=== PATIENT | female | born 1985 | race American Indian/Alaskan Native ===

== ENCOUNTER 2019-06-13 19:28 | Emergency (ER) | payer OTHER ==
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
[2019-06-13 20:58] LABS: HCG Qualitative,Urine Negative (Negative)
[2019-06-13 21:00] LABS: Bilirubin,Urine NEG (Negative); Blood,Urine MOD (Negative); Color,Urine Straw (Yellow); Mucus,Urine FEW /HPF; Protein,Urine <15 mg/dL mg/dL (Negative); RBC,Urine < 1.0 /HPF (0.0-6.0); Urobilinogen,Urine < 2.0 mg/dL (<2.0)
[2019-06-13 21:02] LABS: WBC,Urine < 1.0 /HPF (0.0-6.0)
[2019-06-13] MEDS ORDERED: IBUPROFEN 800 MG TAB PO ONE (22:02)
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
[2019-06-14 01:26] VITALS: BP 148/86
== END 2019-06-13 23:30 | disposition home or self-care (01) ==
LOC: ED 19:28
DX: S16.1XXA Strain of muscle, fascia and tendon at neck level, initial encounter (principal); S39.012A Strain of muscle, fascia and tendon of lower back, initial encounter; S29.012A Strain of muscle and tendon of back wall of thorax, initial encounter; S09.90XA Unspecified injury of head, initial encounter; F17.210 Nicotine dependence, cigarettes, uncomplicated; Z98.890 Other specified postprocedural states
CPT/HCPCS: 70450; 72040; 72072; 72100; 72125; 81001; 81025

== ENCOUNTER 2020-12-13 00:13 | Inpatient (IN) | payer BC, MEDICAID ==
[2020-12-13] MEDS ORDERED: ASPIRIN 325 MG TAB PO ONE (00:27)
[2020-12-13 01:20] LABS: Basophils % (Auto) 0.2 % (0.0-1.8); Eosinophils % (Auto) 0.4 % (0.0-4.3); Hematocrit 37.4 % (30.3-42.9); Hemoglobin 12.3 gm/dl (10.1-14.3); Lymphocytes # (Auto) 1.6 K/mm3 (1.2-5.4); Lymphocytes % (Auto) 16.9 % (13.4-35.0); Mean Corpuscular HGB Conc 33 % (30-34); Mean Corpuscular Volume 82 fl (79-97); Monocytes # (Auto) 0.5 K/mm3 (0.0-0.8); Platelet Count 360 K/mm3 (140-440); Red Blood Count 4.57 M/mm3 (3.65-5.03)
--- NOTE | 2020-12-13 01:38 | XRay Report ---
CHEST 2 VIEWS INDICATION / CLINICAL INFORMATION: Chest Pain. COMPARISON: None available. FINDINGS: SUPPORT DEVICES: None. HEART / MEDIASTINUM: No significant abnormality. LUNGS / PLEURA: No significant pulmonary or pleural abnormality. No pneumothorax. ADDITIONAL FINDINGS: No significant additional findings. IMPRESSION: 1. No acute findings. Signer Name: Kayode Clark MD Signed: 12/13/2020 1:34 AM Workstation Name: [id number]
[2020-12-13 01:45] LABS: Alanine Aminotransferase 13 units/L (7-56); Albumin 4.2 g/dL (3.9-5); BUN/Creatinine Ratio 9; Blood Urea Nitrogen 8 mg/dL (7-17); Calcium 8.7 mg/dL (8.4-10.2); Hemolysis Index 2
[2020-12-13] MEDS ORDERED: POTASSIUM CHLORIDE ER 20 MEQ TAB PO ONE (02:22)
[2020-12-13] MEDS ORDERED: ASPIRIN 81 MG TAB CHEW PO ONE (02:50)
[2020-12-13 03:37] LABS: Chol/HDL Ratio 3.21 %
[2020-12-13] MEDS ORDERED: HEPARIN 10,000 UNITS/10 ML VIAL IV PRN (03:59)
[2020-12-13] MEDS ORDERED: HEPARIN 10,000 UNITS/10 ML VIAL IV ONE (03:59)
[2020-12-13] MEDS ORDERED: HEPARIN/ 0.45% NACL DRIP 25,000 UNIT/500 ML BAG IV SCH (04:00)
[2020-12-13] MEDS ORDERED: MORPHINE 2 MG/1 ML INJ IV ONE (04:02)
[2020-12-13] MEDS ORDERED: NITROGLYCERIN DRIP 50 MG/250 ML BOTTLE IV ONE (04:03)
--- NOTE | 2020-12-13 04:33 | Emergency Department Report ---
ED Chest Pain HPI - General Chief Complaint: Chest Pain Stated Complaint: CHEST PAINS Source: patient, EMS Mode of arrival: Wheelchair Limitations: No Limitations - History of Present Illness Initial Comments: 35-year-old female with past medical history of recent delivery of twins by C- section on October 15 presents to the emergency department with complaint of chest pain. Patient states that her pain started on last night she states that was located in the middle of her chest and moved to her neck and she felt some numbness in her arms. Her chest pain she rated at around 3 or 4 out of 10. She states she has not had symptoms of chest pain prior to this. She denies feeling any shortness of breath. She does have a history of hypertension and states she is currently been on nifedipine and vitamins. She does have family history of cardiac disease with a mother who had a heart attack as well as a cousin who had a heart attack in their 30s. Of note patient does states she is currently receiving treatment for likely endometritis with ampicillin and metronidazole. Severity scale (0 -10): 0 - Related Data Previous Rx's Medication Instructions Recorded Last Taken Type Cyclobenzaprine [Flexeril] 10 mg PO TID PRN #14 tablet 06/13/19 Unknown Rx HYDROcodone/APAP 5-325 [[place] 1 each PO Q6HR PRN #10 tablet 06/13/19 Unknown Rx 5/325] Ibuprofen [Motrin 800 MG tab] 800 mg PO Q8HR PRN #20 tablet 06/13/19 Unknown Rx Allergies Allergy/AdvReac Type Severity Reaction Status Date / Time No Known Allergies Allergy Verified 12/13/20 02:22 Heart Score - HEART Score History: Moderately suspicious EKG: Non-specific Age: < 45 Risk factors: 1-2 risk factors Troponin: 1-3x normal limit HEART Score: 4 - EKG Read Time Time EKG Completed: 00:32 EKG Read Time: 00:40 ED Review of Systems ROS: Stated complaint: CHEST PAINS Other details as noted in HPI Constitutional: denies: chills, fever Eyes: denies: eye discharge ENT: denies: throat pain Respiratory: denies: cough Cardiovascular: chest pain. denies: dyspnea on exertion, syncope Endocrine: no symptoms reported Gastrointestinal: denies: abdominal pain, nausea, vomiting Genitourinary: denies: urgency, dysuria Musculoskeletal: denies: back pain Skin: denies: rash Neurological: denies: headache, weakness Psychiatric: denies: anxiety, depression Hematological/Lymphatic: denies: easy bleeding ED Past Medical Hx - Past Medical History Previous Medical History?: Yes Hx Hypertension: Yes - Surgical History Past Surgical History?: Yes Additional Surgical History: /bladder - Social History Smoking Status: Current Every Day Smoker Substance Use Type: None - Medications Home Medications: Home Medications Medication Instructions Recorded Confirmed Last Taken Type Cyclobenzaprine [Flexeril] 10 mg PO TID PRN #14 tablet 06/13/19 Unknown Rx HYDROcodone/APAP 5-325 [[place] 1 each PO Q6HR PRN #10 tablet 06/13/19 Unknown Rx 5/325] Ibuprofen [Motrin 800 MG tab] 800 mg PO Q8HR PRN #20 tablet 06/13/19 Unknown Rx ED Physical Exam - General Limitations: No Limitations General appearance: alert, in no apparent distress - Head Head exam: Present: atraumatic, normocephalic - Eye Eye exam: Present: normal appearance - ENT ENT exam: Present: mucous membranes moist - Neck Neck exam: Present: normal inspection - Respiratory Respiratory exam: Present: normal lung sounds bilaterally. Absent: respiratory distress - Cardiovascular Cardiovascular Exam: Present: regular rate, normal rhythm. Absent: systolic murmur, diastolic murmur, rubs, gallop - GI/Abdominal GI/Abdominal exam: Present: soft, normal bowel sounds - Rectal Rectal exam: Present: deferred - Extremities Exam Extremities exam: Present: normal inspection - Back Exam Back exam: Present: normal inspection - Neurological Exam Neurological exam: Present: alert, oriented X3 - Psychiatric Psychiatric exam: Present: normal affect, normal mood - Skin Skin exam: Present: warm, dry, intact, normal color. Absent: rash ED Course Vital Signs 12/12/20 12/12/20 12/12/20 23:23 23:30 23:46 Temperature Pulse Rate 75 71 70 Respiratory 19 17 20 Rate Blood Pressure 115/58 115/58 115/58 O2 Sat by Pulse 98 97 98 Oximetry 12/13/20 12/13/20 12/13/20 00:24 02:34 02:45 Temperature 98.3 F Pulse Rate 77 81 76 Respiratory 20 13 11 L Rate Blood Pressure 147/91 115/58 146/96 O2 Sat by Pulse 98 99 100 Oximetry 0712/13/20 12/13/20 03:01 03:15 03:31 Temperature Pulse Rate 74 85 68 Respiratory 20 23 19 Rate Blood Pressure 115/58 125/53 125/53 O2 Sat by Pulse 100 100 99 Oximetry 12/13/20 12/13/20 12/13/20 03:45 04:01 04:15 Temperature Pulse Rate 72 73 82 Respiratory 17 17 17 Rate Blood Pressure 125/53 121/65 121/65 O2 Sat by Pulse 97 96 99 Oximetry 12/13/20 12/13/20 12/13/20 04:49 05:01 05:15 Temperature Pulse Rate 78 76 85 Respiratory 16 19 19 Rate Blood Pressure 138/77 147/94 152/102 O2 Sat by Pulse 97 100 99 Oximetry 12/13/20 12/13/20 12/13/20 05:31 05:45 06:01 Temperature Pulse Rate 76 75 71 Respiratory 14 18 12 Rate Blood Pressure 145/95 137/93 128/82 O2 Sat by Pulse 100 98 99 Oximetry 12/13/20 06:15 Temperature Pulse Rate 78 Respiratory 13 Rate Blood Pressure 134/82 O2 Sat by Pulse 99 Oximetry - Reevaluation(s) Reevaluation #1: 12/13/20 04:15 Patient is currently chest pain-free. Her blood pressure is 121/80. I discussed patient's results of her second troponin and that she will be started on a heparin drip. ED Medical Decision Making - Lab Data Result diagrams: 12/13/20 05:31 12/13/20 00:55 - EKG Data -: EKG Interpreted by Me - EKG Data 12/13/20 02:41 Initial EKG completed at 12:32 AM shows accelerated junctional rhythm at a rate of 83 with right bundle branch block and lateral infarct,age-indeterminate. 12/13/20 02:59 Second EKG done at 2:56 AM shows sinus rhythm at a rate of 77 with possible anterior septal infarct, age indeterminate. - Radiology Data Radiology results: report reviewed, image reviewed - Medical Decision Making 35-year-old female presents emergency department with complaint of chest pain. Patient was evaluated initially in triage and her initial EKG showed accelerated junctional rhythm with right bundle branch block. Patient also had troponin collected in triage that was mildly elevated. When patient arrived to the back and I saw the patient she had EKG that showed normal sinus rhythm with possible anterior lateral infarct. I repeated patient's troponin which was then noted to be elevated at 0.384. I am concerned for NSTEMI at this time. Patient is currently chest pain-free but has been started on a heparin drip. I have also discussed with the hospitalist who is accepted patient for admission. Of note patient states that she also recently delivered twins on September 25 and is currently undergoing treatment with ampicillin and metronidazole for endometritis. Patient does not appear septic, she has no tachycardia no fever and does not complain of severe abdominal pain. Also considered is pulmonary embolism however patient denies any shortness of breath and her oxygen levels are normal and once again has no tachycardia. Patient to be monitored closely on telemetry with heparin drip and admitted to the hospitalist for further management. Critical care attestation.: If time is entered above; I have spent that time in minutes in the direct care of this critically ill patient, excluding procedure time. ED Disposition Clinical Impression: NSTEMI (non-ST elevated myocardial infarction) Disposition: OP ADMIT IP TO THIS HOSP Is pt being admited?: Yes Does the pt Need Aspirin: Yes Condition: Stable Time of Disposition: 04:20
[2020-12-13] MEDS ORDERED: HYDROmorphone 1 MG/1 ML INJ IV PRN (04:36)
[2020-12-13] MEDS ORDERED: ACETAMINOPHEN 325 MG TAB PO PRN (04:36)
[2020-12-13] MEDS ORDERED: oxyCODONE /ACETAMINOPHEN 5-325MG TAB PO PRN (04:36)
[2020-12-13] MEDS ORDERED: ONDANSETRON 4 MG/2 ML INJ IV PRN (04:36)
[2020-12-13] MEDS ORDERED: SODIUM CHLORIDE 0.9% 1000 ML 1,000 ML ONE ×2 (05:01→11:55)
[2020-12-13] MEDS: SODIUM CHLORIDE 0.9% 1000 ML 1,000 ML IV SCH ×2 (05:02→14:00)
--- NOTE | 2020-12-13 05:18 | History and Physical Report ---
History of Present Illness Date of examination: 12/13/20 Date of admission: 12/13/2020 Chief complaint: chest pain History of present illness: 35-year-old -Iraqi female with history of hypertension who presents [facility] ED with complaints of chest pain. Patient states she was driving home around 9 PM last night when she started experiencing substernal chest pain with radiation to her jaw and arms. Upon arriving home she called her sister who was a nurse and described her symptoms. Her sister told her it sounded like heartburn, patient took some Rolaids with no relief. The pain continued and actually worsened, she became nauseous and diaphoretic, and eventually had an episode of emesis. She describes her pain as sharp and rates it 10/10. Patient called EMS for further evaluation and treatment. Of note patient has a strong family history of cardiac disease. Her mother had a heart attack, as well as her cousin (who is in her mid 30s) from an acute [place]. Endorses: Diaphoresis, nausea, emesis, chest pain with radiation to jaw and bilateral arms Denies: Shortness of breath, fever, chills, palpitations, cough, hemoptysis, dysuria, history of GERD, recent sick contacts Past History Past Medical History: hypertension, other (Preeclampsia) Past Surgical History: (X1 (twins)), Other (Bladder surgery) Social history: single, smoking, full code. denies: alcohol abuse, prescription drug abuse, IV drug use Family history: CAD, hypertension Medications and Allergies Allergies Allergy/AdvReac Type Severity Reaction Status Date / Time No Known Allergies Allergy Verified 12/13/20 02:22 Home Medications Medication Instructions Recorded Confirmed Last Taken Type Cyclobenzaprine [Flexeril] 10 mg PO TID PRN #14 tablet 06/13/19 Unknown Rx HYDROcodone/APAP 5-325 [[place] 1 each PO Q6HR PRN #10 tablet 06/13/19 Unknown Rx 5/325] Ibuprofen [Motrin 800 MG tab] 800 mg PO Q8HR PRN #20 tablet 06/13/19 Unknown Rx Active Meds: Active Medications Acetaminophen (Acetaminophen 325 Mg Tab) 650 mg PO Q4H PRN PRN Reason: Pain MILD(1-3)/Fever >100.5/ISIDRO Heparin Sodium (Porcine) (Heparin 10,000 Units/10 Ml Vial) 4,000 unit 40 unit/kg (4000 unit) IV Q6H PRN PRN Reason: Anti-Xa Assay < 0.1 units/ml Hydromorphone HCl (Hydromorphone 1 Mg/1 Ml Inj) 0.5 mg IV Q3H PRN PRN Reason: Pain , Severe (7-10) Heparin Sodium/Sodium Chloride (Heparin/ 0.45% Nacl-25,000 Unit/500 Ml) 25,000 unit in 500 mls @ 20 mls/hr IV TITRATE [place]RI[place]; Protocol Nitroglycerin/Dextrose (Tridil Drip 50mg/250ml) 50 mg in 250 mls @ 3 mls/hr IV TITR ONE; Protocol Stop: 12/16/20 15:22 Last Titration: 12/13/20 05:09 Dose: 15 mcg/min, 4.5 mls/hr Documented by: Sodium Chloride (Nacl 0.9% 1000 Ml) 1,000 mls @ 75 mls/hr IV DIRECT [place]RI[place] Last Admin: 12/13/20 05:02 Dose: 75 mls/hr Documented by: Nicotine (Nicotine 14 Mg/24 Hr Patch) 14 mg TD QDAY [place] Ondansetron HCl (Ondansetron 4 Mg/2 Ml Inj) 4 mg IV Q8H PRN PRN Reason: Nausea And Vomiting Oxycodone/Acetaminophen (Oxycodone /Acetaminophen 5-325mg Tab) 1 tab PO Q6H PRN PRN Reason: Pain, Moderate (4-6) Sodium Chloride (Sodium Chloride 0.9% 10 Ml Flush Syringe) 10 ml IV BID [place] Sodium Chloride (Sodium Chloride 0.9% 10 Ml Flush Syringe) 10 ml IV PRN PRN PRN Reason: LINE FLUSH Review of Systems All systems: negative (As noted in HPI) Exam - Physical Exam Narrative exam: Physical exam General appearance: Present: No acute distress, alert and oriented 3, adult female - EENT Eyes: Present: PERRL, EOM intact ENT: hearing intact, normal dentition - Neck Neck: Present: supple, normal ROM - Respiratory Respiratory effort: Non-labored Respiratory: Clear throughout - Cardiovascular Heart rate: 77 (bpm) Rhythm: possible anterior septal infarct, age indeterminate Heart Sounds: Present: S1 & S2. Absent: rub, click - Extremities Extremities: no ischemia, pulses intact, - Peripheral Assessment Peripheral Pulses: within normal limits - Abdominal General gastrointestinal: Obese, soft, non-tender, normal bowel sounds - Integumentary Integumentary: Present: warm, dry - Musculoskeletal Musculoskeletal: Able to move all extremities -Neurological Neurological: CN II-XII intact - Psychiatric Psychiatric: cooperative - Constitutional Vitals: Temp Pulse Resp BP Pulse Ox 98.3 F 76 19 147/94 100 12/13/20 00:24 12/13/20 05:01 12/13/20 05:01 12/13/20 05:01 12/13/20 05:01 HEART Score - HEART Score EKG: Non-specific Age: < 45 Risk factors: 1-2 risk factors Troponin: Troponin T 0.384 ng/mL (0.00-0.029) H* D 12/13/20 02:24 Troponin: 1-3x normal limit Results - Labs CBC & Chem 7: 12/13/20 00:55 12/13/20 00:55 Labs: Laboratory Last Values WBC 9.7 K/mm3 (4.5-11.0) 12/13/20 00:55 RBC 4.57 M/mm3 (3.65-5.03) 12/13/20 00:55 Hgb 12.3 gm/dl (10.1-14.3) 12/13/20 00:55 Hct 37.4 % (30.3-42.9) 12/13/20 00:55 MCV 82 fl (79-97) 12/13/20 00:55 MCH 27 pg (28-32) L 12/13/20 00:55 MCHC 33 % (30-34) 12/13/20 00:55 RDW 15.0 % (13.2-15.2) 12/13/20 00:55 Plt Count 360 K/mm3 (140-440) 12/13/20 00:55 Lymph % (Auto) 16.9 % (13.4-35.0) 12/13/20 00:55 [place] % (Auto) 5.0 % (0.0-7.3) 12/13/20 00:55 Eos % (Auto) 0.4 % (0.0-4.3) 12/13/20 00:55 Baso % (Auto) 0.2 % (0.0-1.8) 12/13/20 00:55 Lymph # (Auto) 1.6 K/mm3 (1.2-5.4) 12/13/20 00:55 [place] # (Auto) 0.5 K/mm3 (0.0-0.8) 12/13/20 00:55 Eos # (Auto) 0.0 K/mm3 (0.0-0.4) 12/13/20 00:55 Baso # (Auto) 0.0 K/mm3 (0.0-0.1) 12/13/20 00:55 Seg Neutrophils % 77.5 % (40.0-70.0) H 12/13/20 00:55 Seg Neutrophils # 7.6 K/mm3 (1.8-7.7) 12/13/20 00:55 Sodium 139 mmol/L (137-145) 12/13/20 00:55 Potassium 3.3 mmol/L (3.6-5.0) L 12/13/20 00:55 Chloride 101.5 mmol/L (98-107) 12/13/20 00:55 Carbon Dioxide 24 mmol/L (22-30) 12/13/20 00:55 Anion Gap 17 mmol/L 12/13/20 00:55 BUN 8 mg/dL (7-17) 12/13/20 00:55 Creatinine 0.9 mg/dL (0.6-1.2) 12/13/20 00:55 Estimated GFR > 60 ml/min 12/13/20 00:55 BUN/Creatinine Ratio 9 % 12/13/20 00:55 Glucose 106 mg/dL (65-100) H 12/13/20 00:55 Calcium 8.7 mg/dL (8.4-10.2) 12/13/20 00:55 Magnesium 2.10 mg/dL (1.7-2.3) 12/13/20 02:24 Total Bilirubin 0.20 mg/dL (0.1-1.2) 12/13/20 00:55 AST 20 units/L (5-40) 12/13/20 00:55 ALT 13 units/L (7-56) 12/13/20 00:55 Alkaline Phosphatase 81 units/L (35-129) 12/13/20 00:55 Troponin T 0.384 ng/mL (0.00-0.029) H* D 12/13/20 02:24 Total Protein 7.5 g/dL (6.3-8.2) 12/13/20 00:55 Albumin 4.2 g/dL (3.9-5) 12/13/20 00:55 Albumin/Globulin Ratio 1.3 % 12/13/20 00:55 Triglycerides 100 mg/dL (2-149) 12/13/20 00:55 Cholesterol 151 mg/dL (50-199) 12/13/20 00:55 LDL Cholesterol Direct 97 mg/dL (50-130) 12/13/20 00:55 HDL Cholesterol 47 mg/dL (40-59) 12/13/20 00:55 Cholesterol/HDL Ratio 3.21 % 12/13/20 00:55 - Imaging and Cardiology Chest x-ray: report reviewed (No acute abnormalities), image reviewed Assessment and Plan Assessment and plan: NSTEMI -Initiate chest pain protocol -On continuous telemetry monitoring -EKG shows shows sinus rhythm at a rate of 77 with possible anterior septal infarct, age indeterminate -Troponin now 0.384 (trending up from 0.076), will continue to trend -Continue supportive care -On Heparin and nitro gtt -Cardiology consulted HTN -Monitor BP -Resume home hypertensive meds, when appropriate -Currently on nitro drip Hypokalemia -Moderate -See for placement in ED -Continue to monitor and replace as needed Tobacco abuse -History of smoking,, quit during (01/2020-09/2020), a few weeks ago -Endorses smoking 2 to 3 cigarettes/day -Counseled for cessation -Nicotine patch when necessary Advance Directives: Yes VTE prophylaxis?: Mechanical Plan of care discussed with patient/family: Yes
[2020-12-13] MEDS ORDERED: MORPHINE 2 MG/1 ML INJ IV PRN (05:39)
[2020-12-13 05:56] LABS: Hematocrit 35.8 % (30.3-42.9); Hemoglobin 11.6 gm/dl (10.1-14.3)
[2020-12-13 06:12] LABS: INR 1.04 (0.87-1.13)
[2020-12-13 06:20] LABS: Partial Thromboplastin Time 157.1 Sec. (24.2-36.6)
[2020-12-13] MEDS ORDERED: SODIUM CHLORIDE 0.9% 500 ML 500 ML IV SCH (09:00)
[2020-12-13] MEDS ORDERED: NICOTINE 14 MG/24 HR PATCH TD SCH (10:00)
--- NOTE | 2020-12-13 10:02 | Consultation ---
History of Present Illness Consult date: 12/13/20 Requesting physician: ABIMBOLA KHAN Consult reason: elevated troponin History of present illness: 35-year-old female with obesity delivered twins in September 2020 has a family history of premature coronary arterial disease. Last night after dinner had midsternal chest pain nonradiating called her sister who is a nurse took heartburn medication without relief came to the emergency room initial EKG shows wide complex junctional rhythm then patient returned to sinus rhythm with nonspecific ST-T's. Patient found to have elevated troponin admitted for non-ST elevation CT. Patient was placed on heparin and nitroglycerin. Bedside echo shows mild to moderate LV dysfunction with apical hypokinesis. 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 Patient denies any fever chills has some mild nausea Past History Past Medical History: hypertension, other (Preeclampsia) Past Surgical History: (X1 (twins)), Other (Bladder surgery) Social history: single, smoking, full code. denies: alcohol abuse, prescription drug abuse, IV drug use Family history: CAD, hypertension Medications and Allergies Allergies Allergy/AdvReac Type Severity Reaction Status Date / Time No Known Allergies Allergy Verified 12/13/20 02:22 Home Medications Medication Instructions Recorded Confirmed Last Taken Type Cyclobenzaprine [Flexeril] 10 mg PO TID PRN #14 tablet 06/13/19 Unknown Rx HYDROcodone/APAP 5-325 [[place] 1 each PO Q6HR PRN #10 tablet 06/13/19 Unknown Rx 5/325] Ibuprofen [Motrin 800 MG tab] 800 mg PO Q8HR PRN #20 tablet 06/13/19 Unknown Rx Active Meds: Active Medications Acetaminophen (Acetaminophen 325 Mg Tab) 650 mg PO Q4H PRN PRN Reason: Pain MILD(1-3)/Fever >100.5/ISIDRO Heparin Sodium (Porcine) (Heparin 10,000 Units/10 Ml Vial) 4,000 unit 40 unit/kg (4000 unit) IV Q6H PRN PRN Reason: Anti-Xa Assay < 0.1 units/ml Hydromorphone HCl (Hydromorphone 1 Mg/1 Ml Inj) 0.5 mg IV Q3H PRN PRN Reason: Pain , Severe (7-10) Heparin Sodium/Sodium Chloride (Heparin/ 0.45% Nacl-25,000 Unit/500 Ml) 25,000 unit in 500 mls @ 20 mls/hr IV TITRATE ANDRIA; Protocol Last Admin: 12/13/20 05:42 Dose: 1,000 units/hr, 20 mls/hr Documented by: Nitroglycerin/Dextrose (Tridil Drip 50mg/250ml) 50 mg in 250 mls @ 3 mls/hr IV TITR ONE; Protocol Stop: 12/16/20 15:22 Last Titration: 12/13/20 08:15 Dose: 35 mcg/min, 10.5 mls/hr Documented by: Sodium Chloride (Nacl 0.9% 1000 Ml) 1,000 mls @ 75 mls/hr IV DIRECT ANDRIA Last Admin: 12/13/20 05:02 Dose: 75 mls/hr Documented by: Sodium Chloride (Nacl 0.9% 500 Ml) 500 mls @ 50 mls/hr IV DIRECT [place] Stop: 12/13/20 18:59 Morphine Sulfate (Morphine 2 Mg/1 Ml Inj) 2 mg IV Q5MIN PRN PRN Reason: Chest Pain unrelieved by NTG Nicotine (Nicotine 14 Mg/24 Hr Patch) 14 mg TD QDAY [place] Ondansetron HCl (Ondansetron 4 Mg/2 Ml Inj) 4 mg IV Q8H PRN PRN Reason: Nausea And Vomiting Oxycodone/Acetaminophen (Oxycodone /Acetaminophen 5-325mg Tab) 1 tab PO Q6H PRN PRN Reason: Pain, Moderate (4-6) Last Admin: 12/13/20 08:28 Dose: 1 tab Documented by: Sodium Chloride (Sodium Chloride 0.9% 10 Ml Flush Syringe) 10 ml IV BID [place]RI[place] Sodium Chloride (Sodium Chloride 0.9% 10 Ml Flush Syringe) 10 ml IV PRN PRN PRN Reason: LINE FLUSH Review of Systems All systems: negative (as per hpi) Physical Examination Vital Signs Pulse Resp BP Pulse Ox 75 19 115/58 98 12/12/20 23:23 12/12/20 23:23 12/12/20 23:23 12/12/20 23:23 General appearance: no acute distress, well-nourished HEENT: Positive: PERRL, Mucus Membranes Moist Neck: Positive: neck supple, trachea midline Cardiac: Positive: Reg Rate and Rhythm, S1/S2. Negative: Audible Murmur Lungs: Positive: clear to auscultation, Normal Breath Sounds Neuro: Positive: Grossly Intact Abdomen: Positive: Soft, Active Bowel Sounds. Negative: Tender, Distended Female genitourinary: deferred Skin: Positive: Clear Incision: Cardiac Cath Site Musculoskeletal: No Pain, Normal Range of Motion Extremities: Present: normal. Absent: edema Results 12/13/20 05:31 12/13/20 00:55 Cardiac Enzymes 12/13/20 Range/Units 00:55 AST 20 (5-40) units/L Coagulation 12/13/20 Range/Units 05:31 PT 14.1 (12.2-14.9) Sec. INR 1.04 (0.87-1.13) APTT 157.1 H* (24.2-36.6) Sec. Lipids 12/13/20 Range/Units 00:55 Triglycerides 100 (2-149) mg/dL Cholesterol 151 (50-199) mg/dL HDL Cholesterol 47 (40-59) mg/dL Cholesterol/HDL Ratio 3.21 % CBC 12/13/20 12/13/20 Range/Units 00:55 05:31 WBC 9.7 (4.5-11.0) K/mm3 RBC 4.57 (3.65-5.03) M/mm3 Hgb 12.3 11.6 (10.1-14.3) gm/dl Hct 37.4 35.8 (30.3-42.9) % Plt Count 360 366 (140-440) K/mm3 Lymph # (Auto) 1.6 (1.2-5.4) K/mm3 [place] # (Auto) 0.5 (0.0-0.8) K/mm3 Eos # (Auto) 0.0 (0.0-0.4) K/mm3 Baso # (Auto) 0.0 (0.0-0.1) K/mm3 Comprehensive Metabolic Panel 12/13/20 Range/Units 00:55 Sodium 139 (137-145) mmol/L Potassium 3.3 L (3.6-5.0) mmol/L Chloride 101.5 (98-107) mmol/L Carbon Dioxide 24 (22-30) mmol/L BUN 8 (7-17) mg/dL Creatinine 0.9 (0.6-1.2) mg/dL Glucose 106 H (65-100) mg/dL Calcium 8.7 (8.4-10.2) mg/dL AST 20 (5-40) units/L ALT 13 (7-56) units/L Alkaline Phosphatase 81 (35-129) units/L Total Protein 7.5 (6.3-8.2) g/dL Albumin 4.2 (3.9-5) g/dL - Imaging and Cardiology Echo: report reviewed (Mild to moderate LV dysfunction anterior anterior apical hypokinesis EF 40%) EKG interpretations - Telemetry EKG Rhythm: Sinus Rhythm (Sinus rhythm nonspecific ST-T) Assessment and Plan 35-year-old female with a non-ST elevation CT on heparin nitro chest pain is almost resolved given LV dysfunction abnormal troponin patient is being taken to the cardiac [facility] for cardiac catheterization for angiography explained risk and benefits Left heart catheterization revealed left main patent LAD mid 90% had PCI of the LAD with a drug-eluting resolute 3.0 x 30 mm stent. 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 Patient is on heparin and Aggrastat nitro discussed this in detail with the patient patient's sister Mrs. Torres. - Patient Problems (1) Acute diastolic (congestive) heart failure Current Visit: Yes Status: Acute (2) Morbid obesity Current Visit: Yes Status: Chronic (3) Hyperlipidemia Current Visit: Yes Status: Acute Qualifiers: Hyperlipidemia type: mixed hyperlipidemia Qualified Code(s): E78.2 - Mixed hyperlipidemia (4) NSTEMI (non-ST elevated myocardial infarction) Current Visit: Yes Status: Acute
[2020-12-13] MEDS: MIDAZOLAM 2 MG/2 ML INJ ONE ×3 (10:52→11:42)
[2020-12-13] MEDS: LIDOCAINE (2%) 20 MG/1 ML VIAL 20 ML MDV INFILTRATI ONE ×2 (10:52→11:01)
[2020-12-13] MEDS: fentaNYL 100 MCG/2 ML INJ ONE ×3 (10:52→11:42)
[2020-12-13] MEDS: VERAPAMIL 5 MG/2 ML INJ ONE ×2 (10:53→11:01)
[2020-12-13] MEDS: HEPARIN 10,000 UNITS/10 ML VIAL ONE ×4 (10:53→12:05)
[2020-12-13] MEDS: HEPARIN/NS 5000 UNIT/500ML 1,000 ML IR ONE ×2 (10:54→11:00)
[2020-12-13] MEDS: NITROGLYCERIN SYRINGE 3 ML ONE ×2 (10:54→11:01)
--- NOTE | 2020-12-13 10:57 | Event Note ---
Date: 12/13/20 Patient seen and examined, off to the cardiac cath, will follow once patient returns
[2020-12-13] MEDS ORDERED: TIROFIBAN/NS 12,500 MCG/250 ML BAG IV ONE (11:12)
[2020-12-13] MEDS ORDERED: HEPARIN/NS 5000 UNIT/500ML 500 ML IR ONE (11:30)
[2020-12-13] MEDS ORDERED: ATROPINE 0.1% (1 MG/10 ML) CARDIAC SYRINGE ONE (11:33)
[2020-12-13] MEDS ORDERED: NITROGLYCERIN SYRINGE 6 ML ONE (11:39)
[2020-12-13] MEDS ORDERED: fentaNYL 100 MCG/2 ML INJ ONE (11:56)
[2020-12-13] MEDS ORDERED: TICAGRELOR 90 MG TAB ONE (12:14)
--- NOTE | 2020-12-13 12:35 | Discharge Summary ---
Providers - Providers Date of Admission: 12/13/20 04:36 Attending physician: ABIMBOLA KHAN MD 12/13/20 Consult to Cardiac Rehabilitation [CONS] Routine Reason For Exam: Phase 1 12/13/20 04:36 Consult to Cardiology [CONS] Routine Consulting Provider: ALESSANDRO TAYLOR Reason For Exam: NSTEMI on heparin gtt 12/13/20 06:13 Consult to Physician [CONS] Routine Comment: Consulting Provider: ARCHIE COLON Physician Instructions: Reason For Exam: nstemi, icu admission Primary care physician: ORTHO ASSISTANT Hospitalization Reason for admission: NSTEMI Condition: Stable Hospital course: 35-year-old -Mosotho female with history of hypertension who presents [facility] ED with complaints of chest pain. Patient states she was driving home around 9 PM last night when she started experiencing substernal chest pain with radiation to her jaw and arms. Upon arriving home she called her sister who was a nurse and described her symptoms. Her sister told her it sounded like heartburn, patient took some Rolaids with no relief. The pain continued and actually worsened, she became nauseous and diaphoretic, and eventually had an episode of emesis. She describes her pain as sharp and rates it 10/10. Patient called EMS for further evaluation and treatment. Of note patient has a strong family history of cardiac disease. Her mother had a heart attack, as well as her cousin (who is in her mid 30s) from an acute [place]. Endorses: Diaphoresis, nausea, emesis, chest pain with radiation to jaw and bilateral arms Denies: Shortness of breath, fever, chills, palpitations, cough, hemoptysis, dysuria, history of GERD, recent sick contacts PATIENT WENT FOR [employer] AND WAS TRANSFERED TO [place] BY CARDIOLOGY NSTEMI -Initiate chest pain protocol -On continuous telemetry monitoring -EKG shows shows sinus rhythm at a rate of 77 with possible anterior septal infarct, age indeterminate -Troponin now 0.384 (trending up from 0.076), will continue to trend -Continue supportive care -On Heparin and nitro gtt -Cardiology consulted HTN -Monitor BP -Resume home hypertensive meds, when appropriate -Currently on nitro drip Hypokalemia -Moderate -See for placement in ED -Continue to monitor and replace as needed Tobacco abuse -History of smoking,, quit during (01/2020-09/2020), a few weeks ago -Endorses smoking 2 to 3 cigarettes/day -Counseled for cessation -Nicotine patch when necessary Disposition: 02 [facility] Final Discharge Diagnosis (Prints w/discharge instructions): NSTEMI Time spent for discharge: 35 MINS Core Measure Documentation - Palliative Care Palliative Care/ Comfort Measures: Not Applicable - Core Measures Any of the following diagnoses?: acute [place] - Acute [place] Discharge Requirements Aspirin at discharge: Yes ALISON/ARB for LVSD if EF <40%: Not Applicable Beta navid at discharge: Yes Statin for LDL = or >100 mg/dl on DC: Yes Exam - Physical Exam Narrative exam: General appearance: Present: No acute distress, alert and oriented 3, adult female - EENT Eyes: Present: PERRL, EOM intact ENT: hearing intact, normal dentition - Neck Neck: Present: supple, normal ROM - Respiratory Respiratory effort: Non-labored Respiratory: Clear throughout - Cardiovascular Heart rate: 77 (bpm) Heart Sounds: Present: S1 & S2. Absent: rub, click - Extremities Extremities: no ischemia, pulses intact, - Peripheral Assessment Peripheral Pulses: within normal limits - Abdominal General gastrointestinal: Obese, soft, non-tender, normal bowel sounds - Integumentary Integumentary: Present: warm, dry - Musculoskeletal Musculoskeletal: Able to move all extremities -Neurological Neurological: CN II-XII intact - Psychiatric Psychiatric: cooperative - Constitutional Vitals: Temp Pulse Resp BP Pulse Ox 97.5 F L 56 L 22 128/78 94 12/13/20 07:13 12/13/20 09:11 12/13/20 09:11 12/13/20 09:23 12/13/20 09:23 Plan Plan of Treatment: Patient with dissection in need of tertiary care Follow up with: PRIMARY CARE, [Primary Care Provider] - 3-5 Days
[2020-12-13] MEDS ORDERED: HYDROcodone/ACETAMINOPHEN 5-325 MG TAB PO PRN (12:40)
[2020-12-13 14:06] VITALS: BP 141/97
--- NOTE | 2020-12-13 14:14 | Consultation ---
History of Present Illness Consult date: 12/13/20 Requesting physician: CALRISA CEDEÑO Reason for consult: other (NSTEMI) History of present illness: Reportedly to transfer from cath-lab to [facility] and will not be needing ICU admission here - please re-consult if needed Past History Past Medical History: hypertension, other (Preeclampsia) Past Surgical History: (X1 (twins)), Other (Bladder surgery) Social history: single, smoking, full code. denies: alcohol abuse, prescription drug abuse, IV drug use Family history: CAD, hypertension Medications and Allergies Allergies Allergy/AdvReac Type Severity Reaction Status Date / Time No Known Allergies Allergy Verified 12/13/20 02:22 Home Medications Medication Instructions Recorded Confirmed Last Taken Type Cyclobenzaprine [Flexeril] 10 mg PO TID PRN #14 tablet 06/13/19 Unknown Rx HYDROcodone/APAP 5-325 [[place] 1 each PO Q6HR PRN #10 tablet 06/13/19 Unknown Rx 5/325] Ibuprofen [Motrin 800 MG tab] 800 mg PO Q8HR PRN #20 tablet 06/13/19 Unknown Rx Active Meds: Active Medications Acetaminophen (Acetaminophen 325 Mg Tab) 650 mg PO Q4H PRN PRN Reason: Pain MILD(1-3)/Fever >100.5/ISIDRO Hydrocodone Bitart/Acetaminophen (Hydrocodone/Acetaminophen 5-325 Mg Tab) 1 each PO Q6H PRN PRN Reason: Pain, Moderate (4-6) Heparin Sodium (Porcine) (Heparin 10,000 Units/10 Ml Vial) 4,000 unit 40 unit/kg (4000 unit) IV Q6H PRN PRN Reason: Anti-Xa Assay < 0.1 units/ml Hydromorphone HCl (Hydromorphone 1 Mg/1 Ml Inj) 0.5 mg IV Q3H PRN PRN Reason: Pain , Severe (7-10) Heparin Sodium/Sodium Chloride (Heparin/ 0.45% Nacl-25,000 Unit/500 Ml) 25,000 unit in 500 mls @ 20 mls/hr IV TITRATE [place]RI[place]; Protocol Last Titration: 12/13/20 09:00 Dose: 0 units/hr, 0 mls/hr Documented by: Nitroglycerin/Dextrose (Tridil Drip 50mg/250ml) 50 mg in 250 mls @ 3 mls/hr IV TITR ONE; Protocol Stop: 12/16/20 15:22 Last Titration: 12/13/20 09:45 Dose: 250 mcg/min, 75 mls/hr Documented by: Sodium Chloride (Nacl 0.9% 1000 Ml) 1,000 mls @ 75 mls/hr IV DIRECT [place] Last Admin: 12/13/20 05:02 Dose: 75 mls/hr Documented by: Sodium Chloride (Nacl 0.9% 500 Ml) 500 mls @ 50 mls/hr IV DIRECT [place] Stop: 12/13/20 18:59 Morphine Sulfate (Morphine 2 Mg/1 Ml Inj) 2 mg IV Q5MIN PRN PRN Reason: Chest Pain unrelieved by NTG Last Admin: 12/13/20 13:41 Dose: 2 mg Documented by: Nicotine (Nicotine 14 Mg/24 Hr Patch) 14 mg TD QDAY [facility] Last Admin: 12/13/20 10:00 Dose: Not Given Documented by: Ondansetron HCl (Ondansetron 4 Mg/2 Ml Inj) 4 mg IV Q8H PRN PRN Reason: Nausea And Vomiting Oxycodone/Acetaminophen (Oxycodone /Acetaminophen 5-325mg Tab) 1 tab PO Q6H PRN PRN Reason: Pain, Moderate (4-6) Last Admin: 12/13/20 08:28 Dose: 1 tab Documented by: Sodium Chloride (Sodium Chloride 0.9% 10 Ml Flush Syringe) 10 ml IV BID [facility] Last Admin: 12/13/20 10:00 Dose: Not Given Documented by: Sodium Chloride (Sodium Chloride 0.9% 10 Ml Flush Syringe) 10 ml IV PRN PRN PRN Reason: LINE FLUSH Ticagrelor (Ticagrelor 90 Mg Tab) 90 mg PO BID [facility] Physical Examination Vital signs: Vital Signs Pulse Resp BP Pulse Ox 75 19 115/58 98 12/12/20 23:23 12/12/20 23:23 12/12/20 23:23 12/12/20 23:23 Results - Laboratory Findings CBC and BMP: 12/13/20 05:31 12/13/20 00:55 PT/INR, D-dimer PT 14.1 Sec. (12.2-14.9) 12/13/20 05:31 INR 1.04 (0.87-1.13) 12/13/20 05:31 D-Dimer 1140.39 ng/mlDDU (0-234) H 12/13/20 05:31 Abnormal lab findings: Abnormal Labs 12/13/20 12/13/20 12/13/20 00:55 00:55 00:55 MCH 27 L Seg Neutrophils % 77.5 H APTT D-Dimer Potassium 3.3 L Glucose 106 H Troponin T 0.076 H 12/13/20 12/13/20 12/13/20 02:24 05:31 05:31 MCH Seg Neutrophils % APTT 157.1 H* D-Dimer 1140.39 H Potassium Glucose Troponin T 0.384 H* D 0.942 H* D
--- NOTE | 2020-12-13 14:30 | Cardiac Catherization Report ---
DATE OF SERVICE: 12/13/2020 LEFT HEART CATHETERIZATION-PERCUTANEOUS CORONARY REPORT AND INTRAVASCULAR ULTRASOUND REPORT CLINICAL INFORMATION: This is a 35-year-old -[place] female with family history of premature coronary artery disease,delievered two months ago, who is a smoker, obesity, presents with chest pain with non-ST elevation myocardial infarction. PROCEDURE: The patient was taken to cardiac catheterization, explained risks and benefits. The patient was done with moderate sedation started at 11:00 a.m., finished at 12:18 p.m., 78 minutes of moderate sedation. DESCRIPTION OF PROCEDURE: Procedure was done via the right radial artery, sterile technique, local anesthesia. A 6-Namibian radial sheath inserted. Left system engaged with a Matti catheter. The left main is large and patent, bifurcates into medium to large caliber LAD, proximal is patent, mid diffuse 90% lesion. Diagonal 1, diagonal 2, small caliber vessels patent, distal LAD patent, circumflex and AV groove is a medium caliber vessel. The ramus is a medium caliber vessel that is patent with some ostial 30% lesion. RCA is engaged, JR4 is a large dominant vessel that is patent. LV gram done in MICRONESIAN and BERNARDO shows borderline LV function, EF 45%. Attempted PCI of the LAD, difficulty in wiring into the LAD going in to the circumflex. Able to get a Runthrough in the LAD then ballooned with a 2.5 x 20 balloon x2 inflations . Then, IVUS showed distal reference 3.0 mm and left main was patent mild dissection not flow limited. Stented the LAD with a 3.0 x 30 Resolute stent at 12 atmospheres, but the patient was having pain and there was a dissection and thrombus in her circ and high ramus, wired the ramus. The patient was on heparin, also Aggrastat was given to reduce the thrombus burden, but the patient still has a dissection in the circumflex with DEVONTE 2-3 flow, unable to wire despite multiple attempts with different wires and blocking and balloons. A 6-Namibian guiding catheter taken over guidewires. The patient is on IV nitro, heparin and Aggrastat. Brilinta was given to the patient in view of on and off chest pain. She is going to be transferred to [place] for attempted PCI for dissection of the ostial circumflex and bifurcation of OM1.and lt main All catheters taken over guidewires, 6-Namibian radial sheath was discontinued. Radial band applied. SUMMARY: 1. Successful PCI of the mid LAD with drug-eluting Resolute 3.0 x 30mm. 2. dissection of the [place] circumflex and a high OM1 secondary to plaque burden unable to wire secondary to moderate severe tortuosity of the vessel to get in to open up the circumflex. 3. possible spontaneous artery dissection from recent causes multiple vessel dissection RECOMMENDATIONS: The patient will be transferred to [place] for attempted PCI, lt main and lcx. The patient is on heparin, Aggrastat and nitro. Discussed this with the patient and the patient's sister who is a nurse, Ms. Torres. Prognosis is guarded. TID: [id number] RECEIPT: [id number] NELDA/ASIA/TIERA GARCIA
[2020-12-13] MEDS ORDERED: TICAGRELOR 90 MG TAB PO SCH (22:00)
--- NOTE | 2020-12-14 12:18 | Electrocardiograph Report ---
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
--- NOTE | 2020-12-14 12:19 | Electrocardiograph Report ---
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
--- NOTE | 2020-12-14 12:26 | Electrocardiograph Report ---
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
== END 2020-12-13 13:45 | disposition short-term general hospital (02) | DRG 246 ==
LOC: ED 00:13 → IMCU 04:36 → CC1 06:17
PROVIDERS: ADMIT Internal Medicine Geriatric Medicine; ATTEND Internal Medicine
PROC: 027034Z Dilation of Coronary Artery, One Artery with Drug-eluting Intraluminal Device, Percutaneous Approach (ICD-10-PCS; principal; 2020-12-13)
PROC: 4A023N7 Measurement of Cardiac Sampling and Pressure, Left Heart, Percutaneous Approach (ICD-10-PCS; 2020-12-13)
PROC: B2111ZZ Fluoroscopy of Multiple Coronary Arteries using Low Osmolar Contrast (ICD-10-PCS; 2020-12-13)
PROC: B2151ZZ Fluoroscopy of Left Heart using Low Osmolar Contrast (ICD-10-PCS; 2020-12-13)
PROC: B241ZZ3 Ultrasonography of Multiple Coronary Arteries, Intravascular (ICD-10-PCS; 2020-12-13)
DX: I21.4 Non-ST elevation (NSTEMI) myocardial infarction (principal); I25.42 Coronary artery dissection; I50.31 Acute diastolic (congestive) heart failure; I11.0 Hypertensive heart disease with heart failure; E66.01 Morbid (severe) obesity due to excess calories; Z82.49 Family history of ischemic heart disease and other diseases of the circulatory system; F17.200 Nicotine dependence, unspecified, uncomplicated; Z68.41 Body mass index [BMI] 40.0-44.9, adult; Z71.3 Dietary counseling and surveillance
CPT/HCPCS: 36415; 71046; 80053; 80061; 83735; 83880; 84484; 85014; 85018; 85025; 85049; 85379; 85610; 85730; 92928; 92978; 93005; 93306; 93458; G0378; C1725; C1753; C1757; C1769; C1874; C1887; C1894; C9600; J0461; J1644; J2250; J2270; J3010; J3246; J7030; Q9967

== ENCOUNTER 2021-03-16 21:55 | Observation (INO) | payer BC, MEDICAID ==
[2021-03-17 00:28] LABS: BUN/Creatinine Ratio 14; Blood Urea Nitrogen 13 mg/dL (7-17); Calcium 9.2 mg/dL (8.4-10.2); Hemolysis Index 0
[2021-03-17 00:39] LABS: Basophils % (Auto) 0.4 % (0.0-1.8); Eosinophils # (Auto) 0.1 K/mm3 (0.0-0.4); Hematocrit 36.5 % (30.3-42.9); Hemoglobin 11.4 gm/dl (10.1-14.3); Lymphocytes # (Auto) 2.6 K/mm3 (1.2-5.4); Lymphocytes % (Auto) 38.8 % (13.4-35.0); Mean Corpuscular HGB Conc 31 % (30-34); Mean Corpuscular Volume 78 fl (79-97); Monocytes # (Auto) 0.4 K/mm3 (0.0-0.8); Monocytes % (Auto) 5.8 % (0.0-7.3); Platelet Count 402 K/mm3 (140-440); Red Cell Distribution Width 15.6 % (13.2-15.2)
[2021-03-17 00:49] LABS: INR 0.81 (0.87-1.13)
--- NOTE | 2021-03-17 00:59 | Emergency Department Report ---
ED Chest Pain HPI - General Chief Complaint: Chest Pain Stated Complaint: CHEST PAINS Time Seen by Provider: 03/16/21 23:42 Source: patient Mode of arrival: Ambulatory Limitations: No Limitations - History of Present Illness Initial Comments: 35-year-old female presents to the hospital with complaints of chest pain. Patient has been history of NSTEMI here in November with cath requiring PCI of mid LAD and additional Findings of dissection of the [place] circumflex and ostial OM1 required transfer to [place] for additional intervention. Patient states she has 3 stents. She is compliant with her medication. Today since 3 PM she has been having intermittent left-sided chest pain described as aching and squeezing. She had initial relief with 1 nitro. An hour later she developed pain while moving around the home that did not improve with second dose of nitro. She denies nausea, vomiting, or shortness of breath. She is having "hot and cold flashes". - Related Data Home Medications Medication Instructions Recorded Confirmed Last Taken Aspirin 81 mg PO DAILY 01/24/21 01/24/21 01/24/21 07:40 Atorvastatin 20 mg PO DAILY 01/24/21 01/24/21 01/24/21 07:40 Lisinopril 10 mg PO DAILY 01/24/21 01/24/21 01/24/21 07:40 Metoprolol SUCCINATE ER TAB 25 mg PO TID 01/24/21 01/24/21 01/24/21 07:40 Nitroglycerin 0.4 mg SL PRN 01/24/21 01/16/21 21:00 Prasugrel 10 mg PO DAILY 01/24/21 01/24/21 01/24/21 07:40 Tylenol 500 mg PO Q4H PRN 01/24/21 01/24/21 01/22/21 21:00 Allergies Allergy/AdvReac Type Severity Reaction Status Date / Time No Known Allergies Allergy Verified 12/13/20 02:22 Heart Score - HEART Score History: Moderately suspicious EKG: Normal Age: < 45 Risk factors: > 3 risk factors or hx of atherosclerotic disease Troponin: < normal limit HEART Score: 3 - EKG Read Time Time EKG Completed: 00:44 EKG Read Time: 00:48 ED Review of Systems ROS: Stated complaint: CHEST PAINS Other details as noted in HPI Comment: All other systems reviewed and negative ED Past Medical Hx - Past Medical History Hx Hypertension: Yes (09/21/2020) Hx Heart Attack/AMI: Yes (12/12/2020) Hx Congestive Heart Failure: No Hx Deep Vein Thrombosis: No Hx Pulmonary Embolism: No Hx Renal Disease: No Hx Arthritis: No Hx Seizures: No Hx Asthma: No Hx COPD: No - Surgical History Hx Pacemaker: No Hx Cholecystectomy: No Hx Appendectomy: No Additional Surgical History: /bladder - Social History Smoking Status: Former Smoker - Medications Home Medications: Home Medications Medication Instructions Recorded Confirmed Last Taken Type Aspirin 81 mg PO DAILY 01/24/21 01/24/21 01/24/21 07:40 History Atorvastatin 20 mg PO DAILY 01/24/21 01/24/21 01/24/21 07:40 History Lisinopril 10 mg PO DAILY 01/24/21 01/24/21 01/24/21 07:40 History Metoprolol SUCCINATE ER TAB 25 mg PO TID 01/24/21 01/24/21 01/24/21 07:40 History Nitroglycerin 0.4 mg SL PRN 01/24/21 01/16/21 21:00 History Prasugrel 10 mg PO DAILY 01/24/21 01/24/21 01/24/21 07:40 History Tylenol 500 mg PO Q4H PRN 01/24/21 01/24/21 01/22/21 21:00 History ED Physical Exam - General Limitations: No Limitations - Other Other exam information: General: No acute distress Head: Atraumatic Eyes: normal appearance ENT: Moist mucous membranes Neck: Normal appearance, no midline tenderness Chest: Clear to auscultation bilaterally CV: Regular rate and rhythm Abdomen: Soft, normal bowel sounds, nontender, nondistended, no rebound or guarding Back: Normal inspection Extremity: Normal inspection, full range of motion, no calf tenderness or leg edema Neuro: Alert O x 3, no facial asymmetry, speech clear, no gross motor sensory deficit Psych: Appropriate behavior Skin: No rash ED Course Vital Signs 03/16/21 22:02 Temperature 98.8 F Pulse Rate 63 Respiratory 18 Rate Blood Pressure 147/89 O2 Sat by Pulse 100 Oximetry - Consultations Consultation #1: 03/17/21 02:[address] Calderon who advises admission to the hospital DEVONTE score - Devonte Score Age > 65: (0) No Aspirin use within the Past 7 Days: (1) Yes 3 or more CAD Risk Factors: (1) Yes 2 or more Angina events in past 24 hrs: (1) Yes Known CAD with more than 50% Stenosis: (1) Yes Elevated Cardiac Markers: (0) No ST Deviation Greater than 0.5mm: (0) No DEVONTE Score: 4 ED Medical Decision Making - Lab Data Result diagrams: 03/16/21 23:54 03/16/21 23:54 Lab Results 03/16/21 03/16/21 03/16/21 Range/Units 23:54 23:54 23:54 WBC 6.7 (4.5-11.0) K/mm3 RBC 4.70 (3.65-5.03) M/mm3 Hgb 11.4 (10.1-14.3) gm/dl Hct 36.5 (30.3-42.9) % MCV 78 L (79-97) fl MCH 24 L (28-32) pg MCHC 31 (30-34) % RDW 15.6 H (13.2-15.2) % Plt Count 402 (140-440) K/mm3 Lymph % (Auto) 38.8 H (13.4-35.0) % [place] % (Auto) 5.8 (0.0-7.3) % Eos % (Auto) 2.0 (0.0-4.3) % Baso % (Auto) 0.4 (0.0-1.8) % Lymph # (Auto) 2.6 (1.2-5.4) K/mm3 [place] # (Auto) 0.4 (0.0-0.8) K/mm3 Eos # (Auto) 0.1 (0.0-0.4) K/mm3 Baso # (Auto) 0.0 (0.0-0.1) K/mm3 Seg Neutrophils % 53.0 (40.0-70.0) % Seg Neutrophils # 3.5 (1.8-7.7) K/mm3 PT (12.2-14.9) Sec. INR (0.87-1.13) Sodium 139 (137-145) mmol/L Potassium 4.2 (3.6-5.0) mmol/L Chloride 104.5 (98-107) mmol/L Carbon Dioxide 22 (22-30) mmol/L Anion Gap 17 mmol/L BUN 13 (7-17) mg/dL Creatinine 0.9 (0.6-1.2) mg/dL Estimated GFR > 60 ml/min BUN/Creatinine Ratio 14 % Glucose 107 H (65-100) mg/dL Calcium 9.2 (8.4-10.2) mg/dL Troponin T < 0.010 (0.00-0.029) ng/mL HCG, Qual Negative (Negative) 03/16/21 Range/Units 23:54 WBC (4.5-11.0) K/mm3 RBC (3.65-5.03) M/mm3 Hgb (10.1-14.3) gm/dl Hct (30.3-42.9) % MCV (79-97) fl MCH (28-32) pg MCHC (30-34) % RDW (13.2-15.2) % Plt Count (140-440) K/mm3 Lymph % (Auto) (13.4-35.0) % [place] % (Auto) (0.0-7.3) % Eos % (Auto) (0.0-4.3) % Baso % (Auto) (0.0-1.8) % Lymph # (Auto) (1.2-5.4) K/mm3 [place] # (Auto) (0.0-0.8) K/mm3 Eos # (Auto) (0.0-0.4) K/mm3 Baso # (Auto) (0.0-0.1) K/mm3 Seg Neutrophils % (40.0-70.0) % Seg Neutrophils # (1.8-7.7) K/mm3 PT 12.2 (12.2-14.9) Sec. INR 0.81 L (0.87-1.13) Sodium (137-145) mmol/L Potassium (3.6-5.0) mmol/L Chloride (98-107) mmol/L Carbon Dioxide (22-30) mmol/L Anion Gap mmol/L BUN (7-17) mg/dL Creatinine (0.6-1.2) mg/dL Estimated GFR ml/min BUN/Creatinine Ratio % Glucose (65-100) mg/dL Calcium (8.4-10.2) mg/dL Troponin T (0.00-0.029) ng/mL HCG, Qual (Negative) - EKG Data -: EKG Interpreted by Me (anteroseptal infarct) EKG shows normal: sinus rhythm, intervals (qtc 420), QRS complexes (qrsd 77), ST-T waves (no stemi) Rate: normal (60) - EKG Data When compared to previous EKG there are: changes noted - Radiology Data Radiology results: report reviewed (cxr: naf) - Medical Decision Making 35-year-old female with history of CAD with stent x3 presents to the hospital with chest pain. Today her EKG is without acute ischemic findings and she has a negative troponin. However, given high risk after discussion with chief specialist leed patient will be admitted for reevaluation Critical Care Time: No Critical care attestation.: If time is entered above; I have spent that time in minutes in the direct care of this critically ill patient, excluding procedure time. ED Disposition Clinical Impression: Chest pain, History of heart artery stent Disposition: ADMITTED INPATIENT Is pt being admited?: Yes Condition: Stable Time of Disposition: 02:08 (Dr Delgadillo/hospitalist)
--- NOTE | 2021-03-17 00:59 | XRay Report ---
CHEST 2 VIEWS INDICATION / CLINICAL INFORMATION: Chest Pain. COMPARISON: 12/13/2020 FINDINGS: SUPPORT DEVICES: None. HEART / MEDIASTINUM: No significant abnormality. LUNGS / PLEURA: No significant pulmonary or pleural abnormality. No pneumothorax. ADDITIONAL FINDINGS: No significant additional findings. IMPRESSION: 1. No acute findings. Signer Name: Cyril Bridges MD Signed: 03/17/2021 12:55 AM Workstation Name: [id number]
[2021-03-17] MEDS ORDERED: ALBUTEROL 2.5 MG/3 ML NEBU IH PRN (05:01)
[2021-03-17] MEDS ORDERED: ACETAMINOPHEN 325 MG TAB PO PRN (05:01)
[2021-03-17] MEDS ORDERED: ONDANSETRON 4 MG/2 ML INJ IV PRN (05:01)
[2021-03-17] MEDS ORDERED: MORPHINE 2 MG/1 ML INJ IV PRN (05:01)
[2021-03-17] MEDS ORDERED: NITROGLYCERIN 0.4 MG TAB SUBL SL PRN (05:01)
[2021-03-17] MEDS ORDERED: HYDROmorphone 1 MG/1 ML INJ IV PRN (05:01)
--- NOTE | 2021-03-17 05:10 | History and Physical Report ---
History of Present Illness Date of examination: 03/17/21 Date of admission: 03/17/21 Chief complaint: Chest pain History of present illness: 35-year-old female with history of NSTEMI here in November with cath requiring PCI of mid LAD and additional Findings of dissection of the [place] circumflex and ostial OM1 required transfer to [place] for additional intervention was brought to the emergency room because of chest pain. patient states she has 3 stents. She is compliant with her medication. Today since 3 PM she has been having intermittent left-sided chest pain described as aching and squeezing. She had initial relief with 1 nitro. An hour later she developed pain while moving around the home that did not improve with second dose of nitro. She denies nausea, vomiting, or shortness of breath. She is having "hot and cold flashes". In the emergency room initial cardiac enzyme is negative troponin is 0.010, Today her EKG is without acute ischemic findings. Going to admit the patient we consulted cardiology for further evaluation and treatment. Med rec is done Past History Past Medical History: acute SD, hypertension Medications and Allergies Allergies Allergy/AdvReac Type Severity Reaction Status Date / Time No Known Allergies Allergy Verified 12/13/20 02:22 Home Medications Medication Instructions Recorded Confirmed Last Taken Type Aspirin 81 mg PO DAILY 01/24/21 01/24/21 01/24/21 07:40 History Atorvastatin 20 mg PO DAILY 01/24/21 01/24/21 01/24/21 07:40 History Lisinopril 10 mg PO DAILY 01/24/21 01/24/21 01/24/21 07:40 History Metoprolol SUCCINATE ER TAB 25 mg PO TID 01/24/21 01/24/21 01/24/21 07:40 Hi story Nitroglycerin 0.4 mg SL PRN 01/24/21 01/16/21 21:00 History Prasugrel 10 mg PO DAILY 01/24/21 01/24/21 01/24/21 07:40 History Tylenol 500 mg PO Q4H PRN 01/24/21 01/24/21 01/22/21 21:00 History Review of Systems All systems: negative Cardiovascular: chest pain, shortness of breath Exam - Constitutional Vitals: Temp Pulse Resp BP Pulse Ox 98.8 F 56 L 14 142/78 100 03/16/21 22:02 03/17/21 05:00 03/17/21 05:00 03/17/21 05:00 03/17/21 05:00 General appearance: Present: no acute distress, well-nourished - EENT Eyes: Present: PERRL ENT: hearing intact, clear oral mucosa - Neck Neck: Present: supple, normal ROM - Respiratory Respiratory effort: normal Respiratory: bilateral: diminished - Cardiovascular Heart Sounds: Present: S1 & S2. Absent: rub, click - Extremities Extremities: pulses symmetrical, No edema Peripheral Pulses: within normal limits - Abdominal General gastrointestinal: Present: soft, non-tender, non-distended, normal bowel sounds Female genitourinary: Present: normal - Integumentary Integumentary: Present: clear, warm, dry - Musculoskeletal Musculoskeletal: gait normal, strength equal bilaterally - Psychiatric Psychiatric: appropriate mood/affect, intact judgment & insight - Neurologic Neurologic: CNII-XII intact, moves all extremities HEART Score - HEART Score EKG: Normal Age: < 45 Risk factors: > 3 risk factors or hx of atherosclerotic disease Troponin: Troponin T < 0.010 ng/mL (0.00-0.029) 03/16/21 23:54 Troponin: < normal limit Results - Labs CBC & Chem 7: 03/16/21 23:54 03/16/21 23:54 Labs: Laboratory Last Values WBC 6.7 K/mm3 (4.5-11.0) 03/16/21 23:54 RBC 4.70 M/mm3 (3.65-5.03) 03/16/21 23:54 Hgb 11.4 gm/dl (10.1-14.3) 03/16/21 23:54 Hct 36.5 % (30.3-42.9) 03/16/21 23:54 MCV 78 fl (79-97) L 03/16/21 23:54 MCH 24 pg (28-32) L 03/16/21 23:54 MCHC 31 % (30-34) 03/16/21 23:54 RDW 15.6 % (13.2-15.2) H 03/16/21 23:54 Plt Count 402 K/mm3 (140-440) 03/16/21 23:54 Lymph % (Auto) 38.8 % (13.4-35.0) H 03/16/21 23:54 [place] % (Auto) 5.8 % (0.0-7.3) 03/16/21 23:54 Eos % (Auto) 2.0 % (0.0-4.3) 03/16/21 23:54 Baso % (Auto) 0.4 % (0.0-1.8) 03/16/21 23:54 Lymph # (Auto) 2.6 K/mm3 (1.2-5.4) 03/16/21 23:54 [place] # (Auto) 0.4 K/mm3 (0.0-0.8) 03/16/21 23:54 Eos # (Auto) 0.1 K/mm3 (0.0-0.4) 03/16/21 23:54 Baso # (Auto) 0.0 K/mm3 (0.0-0.1) 03/16/21 23:54 Seg Neutrophils % 53.0 % (40.0-70.0) 03/16/21 23:54 Seg Neutrophils # 3.5 K/mm3 (1.8-7.7) 03/16/21 23:54 PT 12.2 Sec. (12.2-14.9) 03/16/21 23:54 INR 0.81 (0.87-1.13) L 03/16/21 23:54 Sodium 139 mmol/L (137-145) 03/16/21 23:54 Potassium 4.2 mmol/L (3.6-5.0) 03/16/21 23:54 Chloride 104.5 mmol/L (98-107) 03/16/21 23:54 Carbon Dioxide 22 mmol/L (22-30) 03/16/21 23:54 Anion Gap 17 mmol/L 03/16/21 23:54 BUN 13 mg/dL (7-17) 03/16/21 23:54 Creatinine 0.9 mg/dL (0.6-1.2) 03/16/21 23:54 Estimated GFR > 60 ml/min 03/16/21 23:54 BUN/Creatinine Ratio 14 % 03/16/21 23:54 Glucose 107 mg/dL (65-100) H 03/16/21 23:54 Calcium 9.2 mg/dL (8.4-10.2) 10/22/21 23:54 Troponin T < 0.010 ng/mL (0.00-0.029) 03/16/21 23:54 HCG, Qual Negative (Negative) 03/16/21 23:54 - Imaging and Cardiology Chest x-ray: report reviewed Assessment and Plan VTE prophylaxis?: Chemical Plan of care discussed with patient/family: Yes - Patient Problems (1) Acute coronary syndrome Current Visit: Yes Status: Acute Plan to address problem: Admit the patient to the medical telemetry. Aspirin 325 mg p.o. daily. Lipitor 80 mg p.o. daily. Nitroglycerin as needed. Morphine 2 mg IV every 4 hours as needed. We do the serial cardiac enzyme. We will do a echocardiogram and consult cardiology for evaluation (2) History of heart artery stent Current Visit: Yes Status: Acute Plan to address problem: Aspirin 325 mg p.o. daily. Lipitor 80 mg p.o. daily. Nitroglycerin as needed. Morphine 2 mg IV every 4 hours as needed. We do the serial cardiac enzyme. We will do a echocardiogram and consult cardiology for evaluation (3) Hypertension Current Visit: Yes Status: Acute Plan to address problem: Lisinopril 10 mg p.o. daily. L metoprolol 25 mg p.o. 3 times daily. We will monitor the blood pressure closely (4) Hyperlipidemia Current Visit: No Status: Acute Qualifiers: Hyperlipidemia type: mixed hyperlipidemia Qualified Code(s): E78.2 - Mixed hyperlipidemia Plan to address problem: Lipitor 80 mg p.o. daily. We recheck the lipid panel. Cardiology consult (5) DVT prophylaxis Current Visit: Yes Status: Acute Plan to address problem: Heparin 5000 units subcu every 8 hours for DVT prophylaxis. Pepcid 20 mg p.o. twice daily for GI prophylaxis. Patient is a full code
[2021-03-17] MEDS ORDERED: SODIUM CHLORIDE 0.9% 1000 ML 1,000 ML IV SCH (05:15)
[2021-03-17 06:15] LABS: Chol/HDL Ratio 3.05 %
[2021-03-17] MEDS: METOPROLOL TARTRATE 25 MG TAB PO SCH ×4 (07:59→22:00)
[2021-03-17] MEDS: IPRATROPIUM/ALBUTEROL SULFATE 3 ML AMPUL.NEB IH SCH ×2 (07:59→20:24)
[2021-03-17] MEDS ORDERED: NON-FORMULARY EACH (Metoprolol Succinate Er Tab 25 MG) PO SCH (08:00)
[2021-03-17] MEDS ORDERED: LISINOPRIL 10 MG TAB PO SCH (10:00)
[2021-03-17] MEDS ORDERED: LISINOPRIL 10 MG PO SCH (10:00)
[2021-03-17] MEDS ORDERED: PRASUGREL 10 MG PO SCH (10:00)
--- NOTE | 2021-03-17 12:23 | Electrocardiograph Report ---
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
--- NOTE | 2021-03-17 12:24 | Electrocardiograph Report ---
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
[2021-03-17] MEDS: PRASUGREL 10 MG TAB PO SCH (12:41)
[2021-03-17] MEDS: ASPIRIN EC 325 MG TAB PO SCH (12:41)
--- NOTE | 2021-03-17 13:40 | Consultation ---
History of Present Illness Consult date: 03/17/21 Requesting physician: DIANE COOPER Consult reason: chest pain History of present illness: 35-year-old female with a past medical history of CAD/ coronary artery dissection/left main stent, ischemic cardiomyopathy, obesity, and hypertension presents to [facility] emergency department complaining of chest pain. She states that she developed chest pain yesterday afternoon took 1 sublingual nitroglycerin and the pain resolved. She stated that she was quite active yesterday with her children and the pain reoccurred the second time when she took a sublingual nitroglycerin the pain did not resolve. She presented to the emergency department. Her twelve-lead EKG did not reveal any acute changes. The patient has had negative cardiac enzymes x3. Her chest x-ray did not reveal any effusions or infiltrates. Currently she is chest pain-free. Past History Past Medical History: acute SC, CAD, hypertension Social history: denies: smoking, alcohol abuse, IV drug use Family history: hypertension Medications and Allergies Allergies Allergy/AdvReac Type Severity Reaction Status Date / Time No Known Allergies Allergy Verified 12/13/20 02:22 Home Medications Medication Instructions Recorded Confirmed Last Taken Type Aspirin 81 mg PO DAILY 01/24/21 01/24/21 01/24/21 07:40 History Atorvastatin 20 mg PO DAILY 01/24/21 01/24/21 01/24/21 07:40 History Lisinopril 10 mg PO DAILY 01/24/21 01/24/21 01/24/21 07:40 History Metoprolol SUCCINATE ER TAB 25 mg PO TID 01/24/21 01/24/21 01/24/21 07:40 His tory Nitroglycerin 0.4 mg SL PRN 01/24/21 01/16/21 21:00 History Prasugrel 10 mg PO DAILY 01/24/21 01/24/21 01/24/21 07:40 History Tylenol 500 mg PO Q4H PRN 01/24/21 01/24/21 01/22/21 21:00 History Active Meds: Active Medications Acetaminophen (Acetaminophen 325 Mg Tab) 650 mg PO Q4H PRN PRN Reason: Pain MILD(1-3)/Fever >100.5/ISIDRO Albuterol (Albuterol 2.5 Mg/3 Ml Nebu) 2.5 mg IH Q4HRT PRN PRN Reason: Shortness Of Breath Albuterol/Ipratropium (Ipratropium/Albuterol Sulfate 3 Ml Ampul.Neb) 1 ampul IH Q6HRT [facility] Last Admin: 03/17/21 07:59 Dose: Not Given Documented by: Aspirin (Aspirin Ec 325 Mg Tab) 325 mg PO QDAY [facility] Last Admin: 03/17/21 12:41 Dose: 325 mg Documented by: Atorvastatin Calcium (Atorvastatin 40 Mg Tab) 80 mg PO QHS [facility] Hydromorphone HCl (Hydromorphone 1 Mg/1 Ml Inj) 0.5 mg IV Q3H PRN PRN Reason: Pain , Severe (7-10) Last Admin: 03/17/21 06:02 Dose: 0.5 mg Documented by: Sodium Chloride (Nacl 0.9% 1000 Ml) 1,000 mls @ 100 mls/hr IV DIRECT [facility] Lisinopril (Lisinopril 10 Mg Tab) 10 mg PO DAILY [facility] Last Admin: 03/17/21 12:44 Dose: 10 mg Documented by: Metoprolol Tartrate (Metoprolol Tartrate 25 Mg Tab) 25 mg PO TID [facility] Last Admin: 03/17/21 12:43 Dose: 25 mg Documented by: Morphine Sulfate (Morphine 2 Mg/1 Ml Inj) 2 mg IV Q4H PRN PRN Reason: Pain, Moderate (4-6) Nitroglycerin (Nitroglycerin 0.4 Mg Tab Subl) 0.4 mg SL .Q5MIN PRN PRN Reason: Chest Pain Ondansetron HCl (Ondansetron 4 Mg/2 Ml Inj) 4 mg IV Q8H PRN PRN Reason: Nausea And Vomiting Last Admin: 03/17/21 06:02 Dose: 4 mg Documented by: Prasugrel (Prasugrel 10 Mg Tab) 10 mg PO DAILY [facility] Last Admin: 03/17/21 12:41 Dose: 10 mg Documented by: Sodium Chloride (Sodium Chloride 0.9% 10 Ml Flush Syringe) 10 ml IV BID [facility] Last Admin: 03/17/21 12:45 Dose: 10 ml Documented by: Sodium Chloride (Sodium Chloride 0.9% 10 Ml Flush Syringe) 10 ml IV PRN PRN PRN Reason: LINE FLUSH Review of Systems Constitutional: no fever, no chills, no sweats Ears, nose, mouth and throat: no ear pain, no ear discharge Breasts: deferred Cardiovascular: chest pain, no orthopnea, no palpitations, no edema, no syncope Respiratory: no cough with sputum, no excessive sputum, no shortness of breath Gastrointestinal: no abdominal pain, no nausea, no vomiting Genitourinary Female: dysuria, urinary frequency Rectal: no pain, no incontinence Musculoskeletal: no neck stiffness, no neck pain Integumentary: no rash, no pruritis Neurological: no paralysis, no weakness Psychiatric: no anxiety, no memory loss Physical Examination Vital Signs Temp Pulse Resp BP Pulse Ox 98.8 F 63 18 147/89 100 03/16/21 22:02 03/16/21 22:02 03/16/21 22:02 03/16/21 22:02 03/16/21 22:02 General appearance: no acute distress HEENT: Positive: PERRL Neck: Positive: neck supple, trachea midline Cardiac: Positive: Reg Rate and Rhythm Lungs: Positive: Normal Breath Sounds Neuro: Positive: Grossly Intact Abdomen: Positive: Soft, Active Bowel Sounds Extremities: Present: normal, warm. Absent: edema Results 03/16/21 23:54 03/16/21 23:54 Coagulation 03/16/21 Range/Units 23:54 PT 12.2 (12.2-14.9) Sec. INR 0.81 L (0.87-1.13) Lipids 03/17/21 Range/Units 04:45 Triglycerides 68 (2-149) mg/dL Cholesterol 119 (50-199) mg/dL HDL Cholesterol 39 L (40-59) mg/dL Cholesterol/HDL Ratio 3.05 % CBC 03/16/21 Range/Units 23:54 WBC 6.7 (4.5-11.0) K/mm3 RBC 4.70 (3.65-5.03) M/mm3 Hgb 11.4 (10.1-14.3) gm/dl Hct 36.5 (30.3-42.9) % Plt Count 402 (140-440) K/mm3 Lymph # (Auto) 2.6 (1.2-5.4) K/mm3 [place] # (Auto) 0.4 (0.0-0.8) K/mm3 Eos # (Auto) 0.1 (0.0-0.4) K/mm3 Baso # (Auto) 0.0 (0.0-0.1) K/mm3 Comprehensive Metabolic Panel 03/16/21 Range/Units 23:54 Sodium 139 (137-145) mmol/L Potassium 4.2 (3.6-5.0) mmol/L Chloride 104.5 (98-107) mmol/L Carbon Dioxide 22 (22-30) mmol/L BUN 13 (7-17) mg/dL Creatinine 0.9 (0.6-1.2) mg/dL Glucose 107 H (65-100) mg/dL Calcium 9.2 (8.4-10.2) mg/dL - Imaging and Cardiology Echo: report reviewed Cardiac cath: report reviewed EKG: report reviewed EKG interpretations - Telemetry EKG Rhythm: Sinus Rhythm Assessment and Plan Echocardiogram 12/14/2020: Technically difficult study, EF 35% Left heart catheterization 12/13/2020: LAD mid 90% ostial ramus 30%, drug-eluting stent to the mid LAD, complication of dissection of the ostial left main into the LAD/LCx/OM1/D1 Left heart catheterization 12/13/2020 ([place]): Successful drug-eluting stent in the left main into the LAD and left main into the LCx, residual dissection of D1 Chest pain CAD/ coronary artery dissection/left main stent Ischemic cardiomyopathy EF 35% Hyperlipidemia Hypertension Obesity EKG with no acute changes Cardiac enzymes negative x3 Telemetry with no events sinus rhythm at 64 Add long-acting nitrate to medication regimen if blood pressure tolerates Continue dual antiplatelet therapy Monitor overnight
--- NOTE | 2021-03-17 16:24 | Event Note ---
Date: 03/17/21 The patient was evaluated this afternoon and found to be hemodynamically stable. The patient is currently chest pain free. The patient will be monitored overnight and re-evaluated by Cardiology in the morning.
[2021-03-17] MEDS: ACETAMINOPHEN 325 MG TAB PO PRN (23:19)
[2021-03-18] MEDS: IPRATROPIUM/ALBUTEROL SULFATE 3 ML AMPUL.NEB IH SCH ×3 (04:16→08:56)
[2021-03-18 05:22] LABS: Basophils % (Auto) 0.3 % (0.0-1.8); Eosinophils # (Auto) 0.1 K/mm3 (0.0-0.4); Eosinophils % (Auto) 2.2 % (0.0-4.3); Hematocrit 32.9 % (30.3-42.9); Hemoglobin 10.5 gm/dl (10.1-14.3); Lymphocytes # (Auto) 2.1 K/mm3 (1.2-5.4); Lymphocytes % (Auto) 41.3 % (13.4-35.0); Mean Corpuscular HGB Conc 32 % (30-34); Mean Corpuscular Volume 78 fl (79-97); Monocytes # (Auto) 0.3 K/mm3 (0.0-0.8); Monocytes % (Auto) 6.9 % (0.0-7.3); Platelet Count 374 K/mm3 (140-440); Red Blood Count 4.24 M/mm3 (3.65-5.03); Red Cell Distribution Width 15.8 % (13.2-15.2)
[2021-03-18 05:34] LABS: BUN/Creatinine Ratio 11; Blood Urea Nitrogen 10 mg/dL (7-17); Calcium 8.5 mg/dL (8.4-10.2); Hemolysis Index 4
[2021-03-18] MEDS: METOPROLOL TARTRATE 25 MG TAB PO SCH (08:10)
[2021-03-18] MEDS: PRASUGREL 10 MG TAB PO SCH (09:46)
[2021-03-18] MEDS: ASPIRIN EC 325 MG TAB PO SCH (09:47)
--- NOTE | 2021-03-18 10:27 | Electrocardiograph Report ---
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
[2021-03-18 11:14] VITALS: BP 112/54
--- NOTE | 2021-03-18 12:11 | Progress Note ---
Assessment and Plan Echocardiogram 12/14/2020: Technically difficult study, EF 35% Left heart catheterization 12/13/2020: LAD mid 90% ostial ramus 30%, drug-eluting stent to the mid LAD, complication of dissection of the ostial left main into the LAD/LCx/OM1/D1 Left heart catheterization 12/13/2020 ([place]): Successful drug-eluting stent in the left main into the LAD and left main into the LCx, residual dissection of D1 Chest pain CAD/ coronary artery dissection/left main stent Ischemic cardiomyopathy EF 35% Hyperlipidemia Hypertension Obesity EKG with no acute changes Cardiac enzymes negative x3 Telemetry with no events sinus rhythm at 64 ContinueImdur Continue dual antiplatelet therapy Discharge home follow-up with Dr. Teresa as outpatient Subjective Date of service: 03/18/21 Principal diagnosis: Chest pain Interval history: Patient sitting up in bed without any complaints. She is chest pain-free. Objective Vital Signs Temp Pulse Resp BP Pulse Ox 03/18/21 11:08 98.4 F 80 18 112/54 98 03/18/21 09:46 64 104/57 03/18/21 07:48 97.5 F L 64 18 104/57 99 03/18/21 04:06 99.7 F H 68 16 95/48 98 03/18/21 00:08 98.4 F 56 L 16 91/45 98 03/17/21 22:00 58 L 99/43 03/17/21 20:38 99 03/17/21 20:09 98.6 F 58 L 16 99/43 99 03/17/21 15:52 97.0 F L 53 L 18 113/68 100 03/17/21 15:19 125 H 03/17/21 12:44 145 H 148/83 03/17/21 12:43 145 H 148/83 - Physical Examination HEENT: Positive: PERRL Neck: Positive: neck supple, trachea midline Cardiac: Positive: Reg Rate and Rhythm Lungs: Positive: clear to auscultation, Normal Breath Sounds Neuro: Positive: Grossly Intact Abdomen: Positive: Soft, Active Bowel Sounds Extremities: Present: normal, warm. Absent: edema - Labs and Meds CBC 03/18/21 Range/Units 04:45 WBC 5.0 (4.5-11.0) K/mm3 RBC 4.24 (3.65-5.03) M/mm3 Hgb 10.5 (10.1-14.3) gm/dl Hct 32.9 (30.3-42.9) % Plt Count 374 (140-440) K/mm3 Lymph # (Auto) 2.1 (1.2-5.4) K/mm3 [place] # (Auto) 0.3 (0.0-0.8) K/mm3 Eos # (Auto) 0.1 (0.0-0.4) K/mm3 Baso # (Auto) 0.0 (0.0-0.1) K/mm3 Comprehensive Metabolic Panel 03/18/21 Range/Units 04:45 Sodium 136 L (137-145) mmol/L Potassium 4.0 (3.6-5.0) mmol/L Chloride 104.8 (98-107) mmol/L Carbon Dioxide 23 (22-30) mmol/L BUN 10 (7-17) mg/dL Creatinine 0.9 (0.6-1.2) mg/dL Glucose 103 H (65-100) mg/dL Calcium 8.5 (8.4-10.2) mg/dL - Imaging and Cardiology EKG: report reviewed Echo: report reviewed Cardiac cath: report reviewed
[2021-03-18] MEDS: ACETAMINOPHEN 325 MG TAB PO PRN (13:07)
--- NOTE | 2021-03-18 13:23 | Discharge Summary ---
Providers - Providers Date of Admission: 03/17/21 07:00 Date of discharge: 03/18/21 Attending physician: DIANE COOPER MD 03/17/21 Consult to Cardiac Rehabilitation [CONS] Routine Reason For Exam: Phase 1 03/17/21 01:40 Consult to Physician [CONS] Urgent Comment: Consulting Provider: ALESSANDRO TAYLOR Physician Instructions: Reason For Exam: chest pain, hx of 3 stents [facility] Reason for admission: Acute coronary syndrome work-up Condition: Stable Pertinent studies: Reviewed. Procedures: None. Hospital course: 35-year-old female with a past medical history of CAD/ coronary artery dissection/left main stent, ischemic cardiomyopathy, obesity, and hypertension presents to [facility] emergency department complaining of chest pain. She states that she developed chest pain yesterday afternoon took 1 sublingual nitroglycerin and the pain resolved. The patient was admitted for continue observation given her detailed cardiac history. Troponins were trended, and they were found to be negative x3. The chest pain did not recur during hospitalization. Cardiology was consulted and determined that the patient could be discharged. Recommendations were given for the patient to continue home medications and follow-up with her already scheduled outpatient appointment with cardiology (Dr. Teresa). The patient discussed being approved for Entresto, and asked questions about if medications should be adjusted based on this new addition. The decision was made to discontinue lisinopril in the setting of initiating Entresto. Patient expressed understanding. Patient is being safely discharged home. Disposition: 01 HOME / SELF CARE / HOMELESS Final Discharge Diagnosis (Prints w/discharge instructions): Atypical chest pain (etiology unknown) Time spent for discharge: 30 minutes Core Measure Documentation - Palliative Care Palliative Care/ Comfort Measures: Not Applicable - Core Measures Any of the following diagnoses?: none - VTE Discharge Requirements Deep Vein Thrombosis/Pulmonary Embolism Present on Admission: No Has pt received <5 days of overlap therapy or INR<2.0: No (Not indicated) Anticoagulant overlap therapy prescribed at discharge: No Contraindication No Overlap Therapy order at DC: Not Indicated - Acute IA Discharge Requirements Aspirin at discharge: No Reason for no aspirin on DC: Medical contraindication (Not indicated) ALISON/ARB for LVSD if EF <40%: Not Applicable Reason for no ALISON/ARB: Medical contraindication Beta navid at discharge: Yes Statin for LDL = or >100 mg/dl on DC: Yes - Heart Failure Discharge Requirements ALISON/ARB for LVSD if EF <40%: Not Applicable Reason for no ALISON/ARB: Medical contraindication (Not indicated) Beta navid at discharge: Yes - Stroke Discharge Requirements Statin for LDL = or >70 mg/dl on DC: Yes Anticoag for atrial fib/atrial flutter: Not Applicable Reason for no anticoag for AF/F on DC: Not Indicated Antithrombotic for ischemic stroke: No Reason for no antithrombotic on DC: Not Indicated Exam - Constitutional Vitals: Temp Pulse Resp BP Pulse Ox 98.4 F 80 18 112/54 98 03/18/21 11:08 03/18/21 11:08 03/18/21 11:08 03/18/21 11:08 03/18/21 11:08 General appearance: Present: no acute distress, well-nourished, obese - EENT Eyes: Present: PERRL, EOM intact ENT: hearing intact, clear oral mucosa, dentition normal - Neck Neck: Present: supple, normal ROM - Respiratory Respiratory effort: normal - Cardiovascular Rhythm: regular Heart Sounds: Present: S1 & S2 - Extremities Extremities: no ischemia, pulses intact, pulses symmetrical, No edema, normal temperature, normal color Peripheral Pulses: within normal limits - Abdominal General gastrointestinal: Present: soft, non-tender, non-distended, normal bowel sounds Female genitourinary: Present: deferred - Rectal Rectal Exam: deferred - Integumentary Integumentary: Present: clear, warm, dry - Musculoskeletal Musculoskeletal: strength equal bilaterally - Psychiatric Psychiatric: appropriate mood/affect, intact judgment & insight, memory intact, cooperative - Neurologic Neurologic: CNII-XII intact, moves all extremities - Allied Health Allied health notes reviewed: nursing Plan Activity: no restrictions Diet: low salt Care Plan Goals: Patient discharging home safely. Assessment: The patient was evaluated for atypical chest pain. Cardiology felt the patient could be discharged home safely with clinic follow-up. Follow up with: JESI LUJAN MD [Primary Care Provider] - 7 Days Prescriptions: AtorvaSTATin [Lipitor] 80 mg PO QHS #30 tablet ISOSORBIDE MONOnitrate [Imdur ER] 30 mg PO QDAY #30 tablet
== END 2021-03-18 14:51 | disposition home or self-care (01) ==
LOC: ED 21:55 → 4A 03-17 07:00
PROVIDERS: ADMIT Hospitalist; ATTEND Student in an Organized Health Care Education/Training Program
DX: I24.9 Acute ischemic heart disease, unspecified (principal); I21.4 Non-ST elevation (NSTEMI) myocardial infarction; I10 Essential (primary) hypertension; E78.2 Mixed hyperlipidemia; I25.2 Old myocardial infarction; I25.5 Ischemic cardiomyopathy; E66.9 Obesity, unspecified; Z95.1 Presence of aortocoronary bypass graft; Z79.82 Long term (current) use of aspirin; Z98.891 History of uterine scar from previous surgery; Z87.891 Personal history of nicotine dependence; Z68.38 Body mass index [BMI] 38.0-38.9, adult
CPT/HCPCS: 36415; 71046; 80048; 80061; 84484; 84703; 85025; 85610; 93005; 96361; 96374; 96375; 99285; A9270; G0378; J1170; J2405; J7030

== ENCOUNTER 2021-11-12 15:17 | Observation (INO) | payer BC, MEDICAID ==
[2021-11-12] MEDS ORDERED: ASPIRIN 81 MG TAB CHEW PO ONE (16:25)
--- NOTE | 2021-11-12 16:31 | Emergency Department Report ---
ED Chest Pain HPI - General Chief Complaint: Chest Pain Stated Complaint: CHEST PAIN/DIZZY/TOOK NITRO Time Seen by Provider: 11/12/21 16:20 Source: patient Mode of arrival: Ambulatory Limitations: No Limitations - History of Present Illness Initial Comments: Patient is 36 years old female with history of significant coronary artery disease with 3 stents placed 4 months ago. Patient presented to the ER complaining of left-sided chest pain with radiation to the jaw and throat area. Patient described her pain as pressure initially was 10 out of 10 but now is 2 out of 10. Patient stated that she took nitroglycerin and it did help her pain. Patient stated that she is compliant with her medication. Patient denies any fever or chills. No cough. MD Complaint: chest pain -: This morning Onset: during rest Pain Location: substernal Pain Radiation: jaw/teeth Severity: moderate Quality: tightness - Related Data Home Medications Medication Instructions Recorded Confirmed Last Taken Aspirin 81 mg PO DAILY 01/24/21 11/12/21 11/12/21 Metoprolol SUCCINATE ER TAB 25 mg PO TID 01/24/21 11/12/21 11/12/21 16:11 Nitroglycerin 0.4 mg SL 1XW PRN 01/24/21 11/12/21 11/12/21 Prasugrel 10 mg PO DAILY 01/24/21 11/12/21 01/24/21 07:40 Tylenol 500 mg PO Q4H PRN 01/24/21 11/12/21 01/22/21 21:00 Previous Rx's Medication Instructions Recorded Last Taken Type AtorvaSTATin [Lipitor] 80 mg PO QHS #30 tablet 03/18/21 11/12/21 Rx ISOSORBIDE MONOnitrate [Imdur ER] 30 mg PO QDAY #30 tablet 03/18/21 11/05/21 Rx 30 Allergies Allergy/AdvReac Type Severity Reaction Status Date / Time No Known Allergies Allergy Verified 12/13/20 02:22 Heart Score - HEART Score History: Moderately suspicious EKG: Non-specific Age: < 45 Risk factors: > 3 risk factors or hx of atherosclerotic disease Troponin: < normal limit HEART Score: 4 - EKG Read Time Time EKG Completed: 15:38 EKG Read Time: 15:40 - Critical Actions Critical Actions: 4-6 pts:12-16.6% risk of adverse cardiac event. Should be admitted ED Review of Systems ROS: Stated complaint: CHEST PAIN/DIZZY/TOOK NITRO Other details as noted in HPI Comment: All other systems reviewed and negative Constitutional: denies: chills, fever Respiratory: denies: cough, shortness of breath, SOB with exertion, SOB at rest Cardiovascular: chest pain. denies: palpitations Gastrointestinal: denies: abdominal pain, nausea, diarrhea, constipation, hematemesis, hematochezia Neurological: denies: headache, weakness, numbness, paresthesias, confusion Psychiatric: denies: auditory hallucinations, visual hallucinations, homicidal thoughts ED Past Medical Hx - Past Medical History Hx Hypertension: Yes Hx Heart Attack/AMI: Yes Hx Congestive Heart Failure: No Hx Deep Vein Thrombosis: No Hx Pulmonary Embolism: No Hx Renal Disease: No Hx Arthritis: No Hx Seizures: No Hx Asthma: No Hx COPD: No - Surgical History Hx Pacemaker: No Hx Cholecystectomy: No Hx Appendectomy: No Additional Surgical History: /bladder, 3 cardiac stents - Social History Smoking Status: Never Smoker - Medications Home Medications: Home Medications Medication Instructions Recorded Confirmed Last Taken Type Aspirin 81 mg PO DAILY 01/24/21 11/12/21 11/12/21 History Metoprolol SUCCINATE ER TAB 25 mg PO TID 01/24/21 11/12/21 11/12/21 16:11 History Nitroglycerin 0.4 mg SL 1XW PRN 01/24/21 11/12/21 11/12/21 History Prasugrel 10 mg PO DAILY 01/24/21 11/12/21 01/24/21 07:40 History Tylenol 500 mg PO Q4H PRN 01/24/21 11/12/21 01/22/21 21:00 History AtorvaSTATin [Lipitor] 80 mg PO QHS #30 tablet 03/18/21 11/12/21 11/12/21 Rx ISOSORBIDE MONOnitrate [Imdur ER] 30 mg PO QDAY #30 tablet 03/18/21 11/12/21 11/05/21 Rx 30 ED Physical Exam - General Limitations: No Limitations General appearance: alert, in no apparent distress - Head Head exam: Present: atraumatic, normocephalic, normal inspection - Eye Eye exam: Present: normal appearance - ENT ENT exam: Present: normal exam, normal orophraynx, mucous membranes moist - Neck Neck exam: Present: normal inspection, full ROM. Absent: tenderness, meningismus, lymphadenopathy, thyromegaly - Respiratory Respiratory exam: Present: normal lung sounds bilaterally - Cardiovascular Cardiovascular Exam: Present: regular rate, normal rhythm, normal heart sounds - GI/Abdominal GI/Abdominal exam: Present: soft, normal bowel sounds. Absent: distended, tenderness, guarding, rebound, rigid, mass, bruit, pulsatile mass, hernia - Extremities Exam Extremities exam: Present: normal inspection, full ROM, normal capillary refill. Absent: tenderness, pedal edema, joint swelling, calf tenderness - Back Exam Back exam: Present: normal inspection, full ROM. Absent: CVA tenderness (R), CVA tenderness (L) - Neurological Exam Neurological exam: Present: alert, oriented X3, CN II-XII intact, normal gait, reflexes normal. Absent: motor sensory deficit - Psychiatric Psychiatric exam: Present: normal mood - Skin Skin exam: Present: warm, intact, normal color ED Course Vital Signs 11/12/21 15:33 Temperature 98.3 F Pulse Rate 85 Respiratory 16 Rate Blood Pressure 141/91 O2 Sat by Pulse 97 Oximetry DEVONTE score - Devonte Score Age > 65: (0) No Aspirin use within the Past 7 Days: (1) Yes 3 or more CAD Risk Factors: (1) Yes 2 or more Angina events in past 24 hrs: (1) Yes Known CAD with more than 50% Stenosis: (1) Yes Elevated Cardiac Markers: (0) No ST Deviation Greater than 0.5mm: (0) No DEVONTE Score: 4 ED Medical Decision Making - Lab Data Result diagrams: 11/12/21 17:32 11/12/21 16:04 - EKG Data -: EKG Interpreted by Ca EKG shows normal: sinus rhythm Rate: normal - EKG Data Interpretation: no acute changes - Radiology Data Radiology results: report reviewed - Medical Decision Making Patient is 36 years old female with history of significant coronary artery disease with 3 stents placed 4 months ago. Patient presented to the ER complaining of left-sided chest pain with radiation to the jaw and throat area. Patient described her pain as pressure initially was 10 out of 10 but now is 2 out of 10. Patient stated that she took nitroglycerin and it did help her pain. Patient stated that she is compliant with her medication. Patient denies any fever or chills. No cough. EKG showed no ST elevation or depression. Chest x-ray is unremarkable. Labs reviewed and is negative for acute finding. Given patient strong history of coronary artery disease. I discussed the patient with Dr. Landa, he agreed to admit the patient to medical service for further management. Critical care attestation.: If time is entered above; I have spent that time in minutes in the direct care of this critically ill patient, excluding procedure time. ED Disposition Clinical Impression: Acute chest pain Disposition: ADMITTED INPATIENT Is pt being admited?: Yes Condition: Stable Instructions: Chest Pain (ED)
--- NOTE | 2021-11-12 16:40 | XRay Report ---
CHEST PA AND LATERAL VIEWS INDICATION: Chest Pain. COMPARISON: 03/17/2021 FINDINGS: Support devices: None. Heart: Within normal limits. Lungs/Pleura: No acute pulmonary or pleural findings. IMPRESSION: 1. No acute findings. Signer Name: David Harris MD Signed: 11/12/2021 4:36 PM Workstation Name: [id number]
[2021-11-12 17:19] LABS: Alanine Aminotransferase 18 units/L (7-56); Albumin 4.5 g/dL (3.9-5); BUN/Creatinine Ratio 10; Blood Urea Nitrogen 9 mg/dL (7-17); Hemolysis Index 129
[2021-11-12 18:15] LABS: Hemoglobin 12.9 gm/dl (10.1-14.3); Mean Corpuscular HGB Conc 32 % (30-34); Mean Corpuscular Volume 80 fl (79-97); Platelet Count 333 K/mm3 (140-440); Red Cell Distribution Width 18.2 % (13.2-15.2)
[2021-11-12 18:20] LABS: INR 0.85 (0.87-1.13)
[2021-11-12 18:21] LABS: Partial Thromboplastin Time 25.4 Sec. (24.2-36.6)
[2021-11-12] MEDS ORDERED: NITROGLYCERIN 0.4 MG TAB SUBL SL PRN (22:48)
[2021-11-12] MEDS ORDERED: ONDANSETRON 4 MG/2 ML INJ IV PRN (22:48)
[2021-11-12] MEDS ORDERED: traMADol 50 MG TAB PO PRN (22:48)
[2021-11-12] MEDS ORDERED: MORPHINE 2 MG/1 ML INJ IV PRN (22:48)
[2021-11-12] MEDS ORDERED: MORPHINE 4 MG/1 ML INJ IV PRN ×2 (22:48)
[2021-11-12] MEDS ORDERED: ACETAMINOPHEN 325 MG TAB PO PRN ×2 (22:48)
--- NOTE | 2021-11-12 23:03 | History and Physical Report ---
History of Present Illness Date of examination: 11/12/21 Date of admission: 11/12/2021 Chief complaint: Chest Pain History of present illness: 36-year-old -[place] female with known history of coronary artery disease with stent placements about 4 months ago presenting to the emergency room today complaining of chest pain. Chest pain was said to be left-sided and radiating towards the right jaw and left side of her neck. Pain felt like pressure initially and on a scale of 10 was about 10/10 in severity. She took some sublingual nitroglycerin with significant improvement in chest pain. Patient follows up with [facility] and has been compliant with her medications. Pain level upon presentation in the emergency room has not decreased to about 2/10. Patient denies any headache or dizziness, no diaphoresis, no nausea or vomiting and no abdominal pain. There were no known relieving or exacerbating factors. Work-up in the emergency room today, labs, cardiac enzymes, chest x-ray and EKG were unremarkable. Patient is being admitted for chest pain evaluation. Past History Past Medical History: CAD Past Surgical History: , PTCA, Other (Bladder surgery) Social history: no significant social history Family history: CAD Medications and Allergies Allergies Allergy/AdvReac Type Severity Reaction Status Date / Time No Known Allergies Allergy Verified 12/13/20 02:22 Home Medications Medication Instructions Recorded Confirmed Last Taken Type Aspirin 81 mg PO DAILY 01/24/21 11/12/21 11/12/21 History Metoprolol SUCCINATE ER TAB 25 mg PO TID 01/24/21 11/12/21 11/12/21 16:11 History Nitroglycerin 0.4 mg SL 1XW PRN 01/24/21 11/12/21 11/12/21 History Prasugrel 10 mg PO DAILY 01/24/21 11/12/21 01/24/21 07:40 History Tylenol 500 mg PO Q4H PRN 01/24/21 11/12/21 01/22/21 21:00 History AtorvaSTATin [Lipitor] 80 mg PO QHS #30 tablet 03/18/21 11/12/21 11/12/21 Rx ISOSORBIDE MONOnitrate [Imdur ER] 30 mg PO QDAY #30 tablet 03/18/21 11/12/21 11/05/21 Rx 30 Active Meds: Active Medications Acetaminophen (Acetaminophen 325 Mg Tab) 650 mg PO Q4H PRN PRN Reason: Pain MILD(1-3)/Fever >100.5/ISIDRO Acetaminophen (Acetaminophen 325 Mg Tab) 650 mg PO Q6H PRN PRN Reason: Pain, Mild (1-3) Aspirin (Aspirin Ec 325 Mg Tab) 325 mg PO QDAY [place] Morphine Sulfate (Morphine 2 Mg/1 Ml Inj) 2 mg IV Q4H PRN PRN Reason: Pain, Moderate (4-6) Morphine Sulfate (Morphine 4 Mg/1 Ml Inj) 4 mg IV Q4H PRN PRN Reason: Pain , Severe (7-10) Morphine Sulfate (Morphine 4 Mg/1 Ml Inj) 2 mg IV Q5MIN PRN PRN Reason: Chest Pain unrelieved by NTG Nitroglycerin (Nitroglycerin 0.4 Mg Tab Subl) 0.4 mg SL Q5M PRN PRN Reason: Chest Pain Ondansetron HCl (Ondansetron 4 Mg/2 Ml Inj) 4 mg IV Q8H PRN PRN Reason: Nausea And Vomiting Sodium Chloride (Sodium Chloride 0.9% 10 Ml Flush Syringe) 10 ml IV BID [place] Sodium Chloride (Sodium Chloride 0.9% 10 Ml Flush Syringe) 10 ml IV PRN PRN PRN Reason: LINE FLUSH Sodium Chloride (Sodium Chloride 0.9% 10 Ml Flush Syringe) 10 ml IV PRN PRN PRN Reason: LINE FLUSH Tramadol HCl (Tramadol 50 Mg Tab) 50 mg PO Q6H PRN PRN Reason: Pain, Moderate (4-6) Review of Systems Constitutional: no fever, no chills Ears, nose, mouth and throat: no nasal congestion, no sore throat Cardiovascular: chest pain, no palpitations Respiratory: no cough, no shortness of breath Gastrointestinal: no abdominal pain, no nausea, no vomiting, no diarrhea Genitourinary Female: no flank pain, no dysuria, no hematuria Musculoskeletal: no neck pain, no low back pain Integumentary: no rash, no pruritis Neurological: no headaches, no confusion Psychiatric: no anxiety, no depression Endocrine: no polyphagia, no polydipsia, no polyuria Exam - Constitutional Vitals: Temp Pulse Resp BP Pulse Ox 98.3 F 85 16 141/91 97 11/12/21 15:33 11/12/21 15:33 11/12/21 15:33 11/12/21 15:33 11/12/21 15:33 General appearance: Present: no acute distress, well-nourished, obese - EENT Eyes: Present: PERRL, EOM intact. Absent: scleral icterus ENT: hearing intact, clear oral mucosa, dentition normal - Neck Neck: Present: supple, normal ROM - Respiratory Respiratory effort: normal Respiratory: bilateral: CTA - Cardiovascular Rhythm: regular Heart Sounds: Present: S1 & S2. Absent: systolic murmur, diastolic murmur, rub, click - Extremities Extremities: no ischemia, pulses intact, pulses symmetrical, No edema, normal temperature, normal color, Full ROM Peripheral Pulses: within normal limits - Abdominal General gastrointestinal: Present: soft, non-tender, non-distended, normal bowel sounds. Absent: mass - Integumentary Integumentary: Present: clear, warm, dry, normal turgor. Absent: rash - Musculoskeletal Musculoskeletal: strength equal bilaterally - Psychiatric Psychiatric: appropriate mood/affect, intact judgment & insight, memory intact, cooperative - Neurologic Neurologic: CNII-XII intact, no focal deficits, moves all extremities HEART Score - HEART Score History: Moderately suspicious EKG: Non-specific Age: < 45 Risk factors: > 3 risk factors or hx of atherosclerotic disease Troponin: Troponin T < 0.010 ng/mL (0.00-0.029) 11/12/21 19:07 Troponin: < normal limit HEART Score: 4 - Critical Actions Critical Actions: 4-6 pts:12-16.6% risk of adverse cardiac event. Should be admitted Results - Labs CBC & Chem 7: 11/12/21 17:32 11/12/21 16:04 Labs: Abnormal lab results 11/12/21 11/12/21 11/12/21 Range/Units 16:04 16:56 17:32 RBC 5.10 H (3.65-5.03) M/mm3 MCH 25 L (28-32) pg RDW 18.2 H (13.2-15.2) % INR 0.85 L (0.87-1.13) Glucose 133 H (65-100) mg/dL Assessment and Plan Assessment: 1. Chest pain 2. History of coronary artery disease with stent placement 3. Obesity Plan: 1. Patient admitted and placed on telemetry. 2. We will check serial cardiac enzymes. Monitor EKG. Start patient on aspirin, sublingual nitroglycerin and IV morphine as needed for chest pain. 3. Consult placed to cardiology for further evaluation and recommendations. 4. Lifestyle modification encouraged. Dietary consult will also be requested. 5. We will resume routine home medications once reconciled. DVT prophylaxis: Subcutaneous heparin CODE STATUS: Full code
[2021-11-13 05:40] LABS: Basophils % (Auto) 0.4 % (0.0-1.8); Eosinophils # (Auto) 0.1 K/mm3 (0.0-0.4); Eosinophils % (Auto) 1.7 % (0.0-4.3); Hematocrit 41.6 % (30.3-42.9); Hemoglobin 13.3 gm/dl (10.1-14.3); Lymphocytes # (Auto) 2.8 K/mm3 (1.2-5.4); Lymphocytes % (Auto) 34.3 % (13.4-35.0); Mean Corpuscular HGB Conc 32 % (30-34); Mean Corpuscular Volume 81 fl (79-97); Monocytes # (Auto) 0.4 K/mm3 (0.0-0.8); Monocytes % (Auto) 5.3 % (0.0-7.3); Platelet Count 314 K/mm3 (140-440); Red Blood Count 5.17 M/mm3 (3.65-5.03); Red Cell Distribution Width 17.8 % (13.2-15.2)
[2021-11-13] MEDS ORDERED: HEPARIN 5,000 UNIT/1 ML VIAL SUB-Q SCH (06:00)
[2021-11-13 06:08] LABS: BUN/Creatinine Ratio 9; Blood Urea Nitrogen 8 mg/dL (7-17); Hemolysis Index 7
[2021-11-13] MEDS ORDERED: NON-FORMULARY EACH (Metoprolol Succinate Er Tab 25 MG) PO SCH (08:00)
[2021-11-13] MEDS ORDERED: REGADENOSON 0.4 MG/5 ML INJ IV SCH (08:30)
[2021-11-13] MEDS ORDERED: REGADENOSON 0.4 MG/5 ML INJ IV ONE (08:44)
[2021-11-13] MEDS ORDERED: PRASUGREL 10 MG TAB PO SCH (10:00)
[2021-11-13] MEDS ORDERED: PRASUGREL 10 MG PO SCH (10:00)
[2021-11-13] MEDS ORDERED: ASPIRIN EC 325 MG TAB PO SCH (10:00)
[2021-11-13] MEDS ORDERED: SACUBITRIL/VALSARTAN 24-26 MG TAB PO SCH (10:00)
[2021-11-13] MEDS ORDERED: CLOPIDOGREL 75 MG TAB PO SCH (10:00)
--- NOTE | 2021-11-13 10:00 | Consultation ---
History of Present Illness Consult date: 11/13/21 Requesting physician: LISA KOCH Consult reason: chest pain History of present illness: This is a 36-year-old female, follows with Dr. Teresa as outpatient, past medical history significant for CAD s/pt PCI 2020, ischemic cardiomyopathy, obesity, hyperlipidemia, spontaneous coronary artery dissection, who presented to [facility] ED with complaints of left-sided chest pain with radiation to the jaw and throat. She describes her pain as pressure, 10 out of 10, has now decreased to 2 out of 10. She states that she took nitroglycerin and which helped her pain, however, she developed n/v related to hypotension. She states compliance with medication. Denies fever, chills, no cough, denies SOB, palpitation, syncope. Cardiology is consulted for chest pain. Past History Past Medical History: CAD Past Surgical History: , PTCA, Other (Bladder surgery) Social history: no significant social history Family history: CAD Medications and Allergies Allergies Allergy/AdvReac Type Severity Reaction Status Date / Time No Known Allergies Allergy Verified 12/13/20 02:22 Home Medications Medication Instructions Recorded Confirmed Last Taken Type Aspirin 81 mg PO DAILY 01/24/21 11/12/21 11/12/21 History Metoprolol SUCCINATE ER TAB 25 mg PO TID 01/24/21 11/12/21 11/12/21 16:11 History Nitroglycerin 0.4 mg SL 1XW PRN 01/24/21 11/12/21 11/12/21 History Prasugrel 10 mg PO DAILY 01/24/21 11/12/21 01/24/21 07:40 History Tylenol 500 mg PO Q4H PRN 01/24/21 11/12/21 01/22/21 21:00 History AtorvaSTATin [Lipitor] 80 mg PO QHS #30 tablet 03/18/21 11/12/21 11/12/21 Rx ISOSORBIDE MONOnitrate [Imdur ER] 30 mg PO QDAY #30 tablet 03/18/21 11/12/21 11/05/21 Rx 30 Active Meds: Active Medications Acetaminophen (Acetaminophen 325 Mg Tab) 650 mg PO Q4H PRN PRN Reason: Pain MILD(1-3)/Fever >100.5/ISIDRO Aspirin (Aspirin Ec 325 Mg Tab) 325 mg PO QDAY [place] Atorvastatin Calcium (Atorvastatin 40 Mg Tab) 80 mg PO QHS [facility] Clopidogrel Bisulfate (Clopidogrel 75 Mg Tab) 75 mg PO QDAY [facility] Heparin Sodium (Porcine) (Heparin 5,000 Unit/1 Ml Vial) 5,000 unit SUB-Q Q8HR [facility] Last Admin: 11/13/21 05:44 Dose: 5,000 unit Isosorbide Mononitrate (Isosorbide Mononitrate Er 30 Mg Tab) 30 mg PO QDAY [facility] Metoprolol Succinate (Metoprolol Succinate Xl 25 Mg Tab) 25 mg PO TID [facility] Morphine Sulfate (Morphine 2 Mg/1 Ml Inj) 2 mg IV Q4H PRN PRN Reason: Pain, Moderate (4-6) Morphine Sulfate (Morphine 4 Mg/1 Ml Inj) 4 mg IV Q4H PRN PRN Reason: Pain , Severe (7-10) Morphine Sulfate (Morphine 4 Mg/1 Ml Inj) 2 mg IV Q5MIN PRN PRN Reason: Chest Pain unrelieved by NTG Nitroglycerin (Nitroglycerin 0.4 Mg Tab Subl) 0.4 mg SL Q5M PRN PRN Reason: Chest Pain Ondansetron HCl (Ondansetron 4 Mg/2 Ml Inj) 4 mg IV Q8H PRN PRN Reason: Nausea And Vomiting Regadenoson (Regadenoson 0.4 Mg/5 Ml Inj) 0.4 mg IV ONCE@0830 [facility] Stop: 11/13/21 13:00 Sacubitril/Valsartan (Sacubitril/Valsartan 24-26 Mg Tab) 1 each PO BID [facility] Sodium Chloride (Sodium Chloride 0.9% 10 Ml Flush Syringe) 10 ml IV BID [facility] Sodium Chloride (Sodium Chloride 0.9% 10 Ml Flush Syringe) 10 ml IV PRN PRN PRN Reason: LINE FLUSH Tramadol HCl (Tramadol 50 Mg Tab) 50 mg PO Q6H PRN PRN Reason: Pain, Moderate (4-6) Review of Systems All systems: negative Cardiovascular: chest pain, no palpitations, no syncope, no shortness of breath, no leg edema Respiratory: no cough Gastrointestinal: nausea, vomiting Menstruation: period heavy Physical Examination Vital Signs Temp Pulse Resp BP Pulse Ox 98.3 F 85 16 141/91 97 11/12/21 15:33 11/12/21 15:33 11/12/21 15:33 11/12/21 15:33 11/12/21 15:33 General appearance: no acute distress Neck: Positive: trachea midline Cardiac: Positive: Reg Rate and Rhythm, S1/S2. Negative: Audible Murmur Lungs: Positive: Normal Exam, clear to auscultation Neuro: Positive: Grossly Intact Abdomen: Positive: Unremarkable, Soft, Active Bowel Sounds Female genitourinary: deferred Skin: Negative: Rash Extremities: Present: normal. Absent: edema Results 11/13/21 04:14 11/13/21 04:14 Cardiac Enzymes 11/12/21 Range/Units 16:04 AST 27 (5-40) units/L Coagulation 11/12/21 Range/Units 16:56 PT 12.5 (12.2-14.9) Sec. INR 0.85 L (0.87-1.13) APTT 25.4 (24.2-36.6) Sec. CBC 11/12/21 11/13/21 Range/Units 17:32 04:14 WBC 9.7 8.3 (4.5-11.0) K/mm3 RBC 5.10 H 5.17 H (3.65-5.03) M/mm3 Hgb 12.9 13.3 (10.1-14.3) gm/dl Hct 41.0 41.6 (30.3-42.9) % Plt Count 333 314 (140-440) K/mm3 Lymph # (Auto) [employer] 2.8 Leon # (Auto) [employer] 0.4 Eos # (Auto) [employer] 0.1 Baso # (Auto) [employer] 0.0 Comprehensive Metabolic Panel 11/12/21 11/13/21 Range/Units 16:04 04:14 Sodium 138 142 (137-145) mmol/L Potassium 4.1 4.0 (3.6-5.0) mmol/L Chloride 101.0 102.3 (98-107) mmol/L Carbon Dioxide 25 23 (22-30) mmol/L BUN 9 8 (7-17) mg/dL Creatinine 0.9 0.9 (0.6-1.2) mg/dL Glucose 133 H 109 H (65-100) mg/dL Calcium 10.0 9.0 (8.4-10.2) mg/dL AST 27 (5-40) units/L ALT 18 (7-56) units/L Alkaline Phosphatase 72 (35-129) units/L Total Protein 7.9 (6.3-8.2) g/dL Albumin 4.5 (3.9-5) g/dL - Imaging and Cardiology Echo: report reviewed (11/2020 LVEF 35%) Cardiac cath: report reviewed EKG: report reviewed, image reviewed EKG interpretations - Telemetry EKG Rhythm: Sinus Rhythm - EKG Sinus rhythms and dysrhythmias: sinus rhythm (no acute ischemic changes) Assessment and Plan Assessment Chest Pain Ischemic CMP Hypertension CAD s/p PCI to LAD 2020 H/o Spontaneous coronary artery dissection Obesity Outpatient medications: Aspirin 81 mg p.o. daily, atorvastatin 40 mg p.o. daily, Effient 10 mg p.o. daily Entresto 2426. Milligrams p.o. every 12 hours,Imdur 30 mg p.o. every morning, metoprolol succinate 50 mg p.o. daily, nitroglycerin 0.4 mg sublingual every 5 minutes as needed Cardiographics: --EKG 11/12/2021-- SR, 71, no acute ischemic changes. --Chest x-ray 11/12/2021-- No acute findings. --Echocardiogram 12/14/2020- TDS. Moderately decreased LVEF. LVEF 35%. Severe anterior, anteroseptal, apical hypokinesis present trace mitral valve regurgitation --Carotid duplex 11/2020-no evidence of bilateral internal carotid disease bilaterally. Bilateral normal antegrade vertebral flow --Cath 11/2020 dilation of coronary arteries x2 with 2 drug-eluting intraluminal devices, dissection of the ostial LM extending into LAD, left circumflex, OM1 and first diagonal. Patent stent in the mid LAD. Successful IVUS guided PCI of left main bifurcation with drug-eluting stent in left main and LAD and left main into left circumflex and patent previous PCI of mid LAD Recommendations/plan: Obtain Lexiscan MPI Stress test Continuous tele monitoring Troponin negative x 3 sets. Electrolytes acceptable. Optimize antihypertensive regimen. Stop effient. Start plavix 2/2 heavy menstrual bleeding. Monitor H/h No evidence of decompensated HF. No indication for diuretic therapy at this time. Contine GDMT: Asa, Aorvastatin, Toprol XL, (now) Plavix, Entresto, Imdur. Patient to have OP echocardiogram as scheduled previously in office. Advised to keep all OP follow up appts. Patient is currently CP free. If stress test negative for acute/reversible ischemia, patient may be discharged home with OP follow up in 1-[address] Teresa, 11/30/2021 @ 11: 15 in our [place] location. Patient seen in conjunction with Dr. Teresa who agrees with the assessment and management of this patient. - Patient Problems (1) Acute chest pain Current Visit: Yes Status: Acute (2) History of heart artery stent Current Visit: No Status: Acute (3) Hyperlipidemia Current Visit: No Status: Acute Qualifiers: Hyperlipidemia type: mixed hyperlipidemia Qualified Code(s): E78.2 - Mixed hyperlipidemia (4) Hypertension Current Visit: No Status: Acute (5) Morbid obesity Current Visit: No Status: Chronic
[2021-11-13 10:29] VITALS: BP 149/90
--- NOTE | 2021-11-13 11:47 | Nuclear Medicine Report ---
APPROVED REPORT Exam: Nuclear Stress Test Indication: Chest pain Patient Location: [address] [place] [address] Room #: 459 Ht: 5 ft 2 in Wt: 227 lbs BSA: 2.02 m2 HR: 77 bpmBP: 134/92 mmHgBMI: 41.51 Rhythm: SINUS RHYTHM WITH SINUS ARRHYTHMIA Stress Test Details Stress Test: Pharmacologic stress testing performed using 0.4 mg of regadenoson per 5 mL given IV over 10 seconds. Reason for pharmacologic stress test: physical limitation. HR Resting HR: 77 bpm Max HR Achieved: 101 bpm Max Heart Rate (APMHR): 182.155878 bpm Target HR (85% APMHR): 154.385106 bpm % of APMHR: 55.49 Recovery HR: 92 bpm BP Resting BP: 134/92 mmHg Max BP: 146/89 mmHg Recovery BP: 143/86 mmHg ECG Resting ECG: SINUS RHYTHM WITH SINUS ARRHYTHMIA Stress ECG: Sinus Rhythm Recovery ECG: Sinus Rhythm Clinical Reason for Termination: Completed protocol Stress Symptoms: None NM EXAM: Myocardial Perfusion REST/STRESS Imaging Protocol: Rest Tc-99m/Stress Tc-99m 1 day Resting Data Rest SPECT myocardial perfusion imaging was performed in supine position 45 minutes following the intravenous injection of 10 mCi of Tc-99m Myoview. Time of rest injection: 0730 Pharmacologic Stress Pharmacologic stress test was performed by injecting Regadenoson 0.4 mg IV push followed by the intravenous injection of 28 mCi of Tc-99m Myoview. Time of stress injection: 0845 Gated Stress SPECT was performed 30 minutes after stress injection. The images were gated to evaluate regional wall motion and calculate left ventricular ejection fraction. Study Quality Study: excellent Lung Uptake: Normal Study Data TID = 1.13. Perfusion Wall Motion The rest and stress images show normal left ventricular wall motion. Nuclear Conclusion ECG Findings: negative for ischemia Clinical Findings: negative for ischemia Nuclear Findings: negative for ischemia Exercise Capacity: not assessed Left Ventricular Function: normal negative lexiscan ekg, mild fixed mid anterior defect on rest and stress and normal lv function, normal perfusion in anterior apical , apical, septal and lateral and inferior region, no signficant ischemia noted
[2021-11-13 12:34] LABS: Bilirubin,Urine NEG (Negative); Blood,Urine LG (Negative); Color,Urine Colorless (Yellow); Protein,Urine <15 mg/dL mg/dL (Negative); Urobilinogen,Urine < 2.0 mg/dL (<2.0)
[2021-11-13 12:44] LABS: Amphetamine Screen,Urine Negative; Benzodiazepines Screen,Urine Negative; Cocaine Screen,Urine Negative; Methadone Screen,Urine Negative; Opiate Screen,Urine Negative
[2021-11-13 12:46] LABS: RBC,Urine < 1.0 /HPF (0.0-6.0); WBC,Urine < 1.0 /HPF (0.0-6.0)
[2021-11-13 13:02] LABS: Cannabinoid Screen,Urine Positive
--- NOTE | 2021-11-13 13:15 | Discharge Summary ---
Providers - Providers Date of Admission: 11/12/21 22:50 Attending physician: ABIMBOLA KHAN MD 11/12/21 Consult to Cardiac Rehabilitation [CONS] Routine Reason For Exam: Phase I 11/12/21 22:48 Consult to Physician [CONS] Routine Comment: Consulting Provider: VICENTA TERESA Physician Instructions: Reason For Exam: Chest pain Primary care physician: [employer] Hospitalization Reason for admission: Chest pain Condition: Stable Hospital course: Patient is a very 36-year-old female, follows with Dr. Teresa as outpatient, past medical history significant for CAD s/pt PCI 2020, ischemic cardiomyopathy, obesity, hyperlipidemia, spontaneous coronary artery dissection, who presented to [facility] ED with complaints of left-sided chest pain while there is documentation that she had radiation to the jaw and throat, she states that she did not have any radiation except the nausea vomiting likely related to hypotension from the nitroglycerin. She describes her pain as pressure, 10 out of 10, has now decreased to 2 out of 10. She states that she took nitroglycerin and which helped her pain, however, she developed n/v related to hypotension. She had a stress test that was negative Troponin negative x 3 sets. Electrolytes acceptable. Optimize antihypertensive regimen. Stop effient. Start plavix 2/2 heavy menstrual bleeding. Monitor H/h Discussed with Cardiology Prasugrel changed to Plavix and will follow with cardiology outpatient. Symptoms improved. Echo: report reviewed (11/2020 LVEF 35%) Cardiac cath: report reviewed EKG: report reviewed, image reviewed Outpatient medications: Aspirin 81 mg p.o. daily, atorvastatin 40 mg p.o. daily, Effient 10 mg p.o. daily Entresto 2426. Milligrams p.o. every 12 hours,Imdur 30 mg p.o. every morning, metoprolol succinate 50 mg p.o. daily, nitroglycerin 0.4 mg sublingual every 5 minutes as needed Cardiographics: --EKG 11/12/2021-- SR, 71, no acute ischemic changes. --Chest x-ray 11/12/2021-- No acute findings. --Echocardiogram 12/14/2020- TDS. Moderately decreased LVEF. LVEF 35%. Severe anterior, anteroseptal, apical hypokinesis present trace mitral valve regurgitation --Carotid duplex 11/2020-no evidence of bilateral internal carotid disease bilaterally. Bilateral normal antegrade vertebral flow --Cath 11/2020 dilation of coronary arteries x2 with 2 drug-eluting intraluminal devices, dissection of the ostial LM extending into LAD, left circumflex, OM1 and first diagonal. Patent stent in the mid LAD. Successful IVUS guided PCI of left main bifurcation with drug-eluting stent in left main and LAD and left main into left circumflex and patent previous PCI of mid LAD Atypical chest pain secondary to Hypotension Ischemic CMP Hypertension CAD s/p PCI to LAD 2020 H/o Spontaneous coronary artery dissection Obesity 50 minutes of weight loss counseling provided to the patient she verbalized understanding. She will follow with cardiology outpatient Disposition: HOME / SELF CARE / HOMELESS Final Discharge Diagnosis (Prints w/discharge instructions): Atypical chest pain in a patient with CAD. Time spent for discharge: 35 Core Measure Documentation - Palliative Care Palliative Care/ Comfort Measures: Not Applicable - Core Measures Any of the following diagnoses?: none Exam - Physical Exam Narrative exam: VITAL SIGNS: Reviewed. GENERAL: The patient appears normally developed, morbidly obese vital signs as documented. HEAD: No signs of head trauma. EYES: Pupils are equal. Extraocular motions intact. EARS: Hearing grossly intact. MOUTH: Oropharynx is normal. NECK: No adenopathy, no JVD. CHEST: Chest with clear breath sounds bilaterally. No wheezes, rales, or rhonchi. CARDIAC: Regular rate and rhythm. S1 and S2, without murmurs, gallops, or rubs. VASCULAR: No Edema. Peripheral pulses normal and equal in all extremities. ABDOMEN: Soft, non tender and non distended. No rebound or guarding, and no masses palpated. Bowel Sounds normal. MUSCULOSKELETAL: Good range of motion of all major joints. Extremities without clubbing, cyanosis or edema. NEUROLOGIC EXAM: Alert and oriented x 3 No focal sensory or strength deficits. Speech normal. Follows commands. PSYCHIATRIC: Mood normal. SKIN: detail exam as documented in skin assessment - Constitutional Vitals: Temp Pulse Resp BP Pulse Ox 98.2 F 95 H 18 149/90 98 11/13/21 03:42 11/13/21 10:29 11/13/21 06:33 11/13/21 10:29 11/13/21 12:44 Plan Activity: advance as tolerated, fall precautions Diet: low fat Special Instructions: record daily weights, record daily BP diary Plan of Treatment: stop the Prasugrel and start on ordered plavix Follow up with: PRIMARY CARE, [Primary Care Provider] - 3-5 Days VICENTA TERESA MD [Staff Physician] - 7 Days Prescriptions: Sacubitril/Valsartan [Entresto 24 - 26 mg] 1 each PO BID #60 tablet Clopidogrel [Plavix] 75 mg PO QDAY #30 tablet
[2021-11-13] MEDS ORDERED: METOPROLOL SUCCINATE XL 25 MG TAB PO SCH (14:00)
--- NOTE | 2021-11-15 18:46 | Electrocardiograph Report ---
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
--- NOTE | 2021-11-15 18:51 | Electrocardiograph Report ---
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
--- NOTE | 2021-11-15 18:54 | Electrocardiograph Report ---
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
== END 2021-11-13 14:54 | disposition home or self-care (01) ==
LOC: ED 15:17 → 4A 22:50 → INTOOBSV 22:50
PROVIDERS: ADMIT Internal Medicine Geriatric Medicine; ATTEND Internal Medicine
DX: R07.89 Other chest pain (principal); Z68.41 Body mass index [BMI] 40.0-44.9, adult; I25.10 Atherosclerotic heart disease of native coronary artery without angina pectoris; I10 Essential (primary) hypertension; I95.9 Hypotension, unspecified; E78.5 Hyperlipidemia, unspecified; E66.01 Morbid (severe) obesity due to excess calories; Z95.1 Presence of aortocoronary bypass graft; Z98.891 History of uterine scar from previous surgery; Z79.899 Other long term (current) drug therapy; Z98.890 Other specified postprocedural states; Z79.82 Long term (current) use of aspirin
CPT/HCPCS: 36415; 71046; 78452; 80048; 80053; 80307; 81001; 83690; 84484; 85025; 85610; 85730; 93005; 93017; 96372; 99285; A9502; G0378; J1644; J2785